=== PATIENT | male | born 1935 | race Caucasian/White ===

== ENCOUNTER 2016-04-07 07:51 | Inpatient (IN) | payer OTHER, MEDICARE ==
[~2016-04-07] VITALS: Ht 190.5 cm; Wt 134.3 kg
[~2016-04-07 07:51] MED LIST: ADVAIR HFA120 INHALA IH; AMLODIPINE BESYL5 MG PO; APRESOLINE50 MG PO; ARTIFICIAL TEAR15 M1 BOTH EYES; ASCORBIC ACID100 MG PO; ASCORBIC ACID500 M3 PO; AUGMENTIN875 MG PO; BIOTENE MOISTUR45 ML PO; BREO ELLIPTA I1 EACH IH; C COMPLEX500 MG PO; CARDURA2 M1 PO; CIPRO HC OTIC S10 ML RIGHT EAR; COREG3.125 M1 PO; COUMADIN3 MG PO; COUMADIN4 MG PO; DIALYVITE 801 TABLET PO; DIALYVITE PO; DIFF-STAT POWD1 EACH PO; DORIBAX250 MG IV; DOXAZOSIN MESYLA2 MG PO; DULCOLAX10 MG PR; DUONEB 2.5-0.5 M3 ML AEROSOL; DUONEB 2.5-0.5 M3 ML IH; EFFEXOR XR150 MG PO; EFFEXOR XR75 MG PO; ENDOCET 5-3251 EACH PO; ENEMA133 M2 PR; ESCITALOPRAM OX10 MG PO; FAMOTIDINE20 MG PO; FEROSUL325 MG PO; FERROUS SULFAT325 MG PO; FINASTERIDE5 MG PO; FLEET ENEMA-AD118 ML PR; FLOMAX0.4 MG PO; FOLBEE PLUS TABL5 MG PO; FOLIC ACID1 MG PO; FUROSEMIDE20 MG PO; FUROSEMIDE40 MG PO; GALZIN25 MG PO; GENTEAL MILD25 ML BOTH EYES; GENTEAL PM OIN3.5 G1 BOTH EYES; HEPARIN SO5000 UNITS SC; HIPREX1 GM PO; HYDRALAZINE HCL50 MG PO; IMODIUM MS REL1 EACH PO; IRON325 M1 PO; KEFLEX500 MG PO; KETOCONAZOLE60 GM TP; KLOR-CON M2020 MEQ PO; LASIX20 MG PO; LASIX40 MG PO; LASIX80 MG PO; LEVEMIR100 UNIT/2 SC; LEVO-T100 MCG PO; LEVOTHYROXINE300 MCG PO; LEVOTHYROXINE50 MCG PO; LEVOTHYROXINE75 MCG PO; LEVOXYL200 MCG PO; LEVOXYL75 MCG PO; LEXAPRO10 MG PO; LEXAPRO20 MG PO; LISINOPRIL5 MG PO; LOPERAMIDE2 MG PO; LYRICA100 MG PO; LYRICA50 MG PO; LYRICA75 MG PO; METOLAZONE2.5 MG PO; MIDODRINE HCL10 MG PO; MILK OF MAGN PO; NEPHRO-VITE RX1 EACH PO; NEPHRO-VITE,1 TABLET PO; NEPRO CARB STE237 ML PO; NOVOLOG 10100 UNITS/ SC; NOVOLOG PE100 UNITS/ SC; OMEPRAZOLE20 MG PO; ORAL ANALGESIC9 GM MM; ORAZINC220 MG PO; PEPCID20 MG PO; PERCOCET 5/31 TABLET PO; POTASSIUM CHLO20 ME1 PO; PRAVACHOL20 MG PO; PRAVASTATIN SOD20 MG PO; PREDNISONE10 MG PO; PRINIVIL5 MG PO; PROAMATINE10 MG PO; PROMETHAZINE HC25 M1 PO; PROSCAR5 MG PO; PROTONIX40 MG PO; RENVELA800 MG PO; REVATIO20 MG PO; SILDENAFIL20 MG PO; SPIRIVA RESPIMAT4 GM IH; SPIRIVA1 INHALATI IH; SUPPOSITORY1 EACH PR; SYNTHROID200 MCG PO; SYNTHROID300 MCG PO; TAMSULOSIN HCL0.4 MG PO; TEARS NATURALE-15 ML BOTH EYES; TYLENOL REGULA325 MG PO; VANCOCIN HCL125 MG PO; VANCOMYCIN HCL250 MG PO; VANCOMYCIN250 MG/5 M PO; VANCOMYCIN750 MG/151 IV; VITAMIN D-32000 UNI2 PO; VITAMIN D2000 UNIT PO; VITAMIN D32000 UNI1 PO; XARELTO20 MG PO; ZINC SULFATE220 M1 PO; ZINC SULFATE220 MG PO; ZOLOFT100 MG PO; [UNRECOGNIZED DRUG - CODE]; [UNRECOGNIZED DRUG - CODE] PO; [UNRECOGNIZED DRUG - OTHER] TP
[2016-04-07 08:15] LABS: BASE EXCESS 0.8 mEq/L (-3 to +3); BICARBONATE 26.6 mEq/L (22-26); CARBOXY HGB 0 % (0-5); METHEMOGLOBIN 0 % (0-1.5); pH 7.36 (7.35-7.45)
[2016-04-07 08:16] LABS: COMMENTS - BLOOD GASES A+C+; DEVICE NRBM; O2 FLOW 15 L/MIN; PCO2 47 mm Hg (35-45); PO2 94 mm Hg (80-100); SITE RR
[2016-04-07 08:55] LABS: HEMATOCRIT 30.5 % (38.0-50.0); MCH 28.5 PG (29.0-34.0); MCHC 29.8 G/DL (30.0-36.0); MCV 95.6 FL (86-99); MEAN PLAT.VOLUME 9.5 uM^3 (9.0-12.4); PLATELET COUNT 161 K/uL (156-360); RBC DIS.WIDTH-CV 17.7 % (11.8-14.6); RED BLOOD COUNT 3.19 M/uL (4.00-5.50); WHITE BLOOD COUNT 18.2 K/uL (4.1-10.2)
[2016-04-07 09:01] LABS: BASOPHIL COUNT 0.1 K/uL (0-0.1); EOSINOPHIL (%) 1.2 % (0-5); EOSINOPHIL COUNT 0.2 K/uL (0-0.3); IMMATURE GRANULOCYTE (%) 0.9 % (0.0-0.7); IMMATURE GRANULOCYTE COUNT 1.7 K/uL; LYMPHOCYTE COUNT 0.5 K/uL (1.0-2.8); MONOCYTE COUNT 1.5 K/uL (0-0.8); NEUTROPHIL COUNT 15.9 K/uL (1.8-6.4)
[2016-04-07 09:07] LABS: INTER. NORMALIZED RATIO 2.8; PROTHROMBIN TIME 29.8 (9.2-11.2); PTT 37.3 (25-32)
[2016-04-07 09:30] LABS: ANION GAP 14 MEQ/L (2-14); CHLORIDE 90 MEQ/L (99-109); GFR ESTIMATE (CALCULATED) 9 mL/min/; GLUCOSE 177 mg/dL (70-99); SAMPLE HEMOLYSIS CHECK 0; SAMPLE ICTERIC CHECK 0; SAMPLE LIPEMIA CHECK 0; SODIUM 132 MEQ/L (136-147); UREA NITROGEN (BUN) 87 mg/dL (9-23)
[2016-04-07 09:31] LABS: POTASSIUM 6.3 MEQ/L (3.7-5.4)
[2016-04-07] MEDS ORDERED: WARFARIN SODIU2.5 MG PO (10:47)
[2016-04-07] MEDS ORDERED: WARFARIN SODIUM5 MG PO (10:47)
[2016-04-07] MEDS ORDERED: LEVO-T175 MCG PO (10:53)
[2016-04-07] MEDS ORDERED: BRINTELLIX20 MG PO (10:55)
[2016-04-07] MEDS ORDERED: LEVAQUIN500 MG PO (10:55)
[2016-04-07] MEDS ORDERED: PROBIOTIC1 EAC1 PO (10:57)
[2016-04-07] MEDS ORDERED: CIPRODEX OTIC7.5 ML RIGHT EAR (11:02)
[2016-04-07] MEDS ORDERED: ALLERGY RELIE15.8 ML BOTH NARES (11:11)
[2016-04-07] MEDS ORDERED: LEVOXYL200 MCG PO (11:12)
[2016-04-07] MEDS ORDERED: IMODIUM MS REL1 EACH PO (11:16)
[2016-04-07] MEDS ORDERED: DUONEB 2.5-0.5 M3 ML AEROSOL (11:18)
[2016-04-07 19:02] VITALS: BP 106/60
[2016-04-07 20:03] VITALS: BP 104/66
[2016-04-07 21:04] VITALS: BP 140/105
[2016-04-07 22:00] VITALS: BP 118/57
[2016-04-07 22:51] VITALS: BP 121/71
[2016-04-07 23:47] VITALS: BP 104/54
[2016-04-08 04:00] VITALS: BP 116/60
[2016-04-08 06:33] LABS: INTER. NORMALIZED RATIO 3.1; PROTHROMBIN TIME 32.2 (9.2-11.2)
[2016-04-08 08:33] VITALS: BP 91/51
[2016-04-08 11:29] VITALS: BP 96/51
[2016-04-08 17:08] LABS: POINT-OF-CARE METER ID UU14149397
[2016-04-08 17:10] VITALS: BP 120/63
[2016-04-08 20:42] VITALS: BP 96/52
[2016-04-08 21:40] LABS: POINT-OF-CARE METER ID UU14149397
[2016-04-08 23:29] VITALS: BP 101/55
[2016-04-09 06:13] LABS: POINT-OF-CARE METER ID UU14149397
[2016-04-09 06:14] LABS: EOSINOPHIL (%) 3.1 % (0-5); EOSINOPHIL COUNT 0.4 K/uL (0-0.3); HEMATOCRIT 26.2 % (38.0-50.0); IMMATURE GRANULOCYTE (%) 0.8 % (0.0-0.7); IMMATURE GRANULOCYTE COUNT 0.1 K/uL; LYMPHOCYTE COUNT 1.1 K/uL (1.0-2.8); MCH 27.9 PG (29.0-34.0); MCHC 29.8 G/DL (30.0-36.0); MCV 93.6 FL (86-99); MEAN PLAT.VOLUME 9.2 uM^3 (9.0-12.4); MONOCYTE (%) 12.4 % (3-12); MONOCYTE COUNT 1.5 K/uL (0-0.8); NEUTROPHIL (%) 74.2 % (45-76); NEUTROPHIL COUNT 8.9 K/uL (1.8-6.4); PLATELET COUNT 121 K/uL (156-360); RBC DIS.WIDTH-CV 17.3 % (11.8-14.6); RBC DIS.WIDTH-SD 59.8 % (39-53)
[2016-04-09 06:40] LABS: ANION GAP 14 MEQ/L (2-14); CHLORIDE 93 MEQ/L (99-109); POTASSIUM 5.3 MEQ/L (3.7-5.4); SAMPLE HEMOLYSIS CHECK 0; SAMPLE ICTERIC CHECK 0; SAMPLE LIPEMIA CHECK 0; SODIUM 133 MEQ/L (136-147); UREA NITROGEN (BUN) 59 mg/dL (9-23)
[2016-04-09 06:42] LABS: GFR ESTIMATE (CALCULATED) 13 mL/min/; GLUCOSE 112 mg/dL (70-99); VANCOMYCIN, TROUGH 7.4 MCG/ML (10-20)
[2016-04-09 08:06] VITALS: BP 115/51
[2016-04-09 14:16] VITALS: BP 118/57
[2016-04-09 14:22] LABS: INTER. NORMALIZED RATIO 6.2; PROTHROMBIN TIME 66.6 (9.2-11.2)
[2016-04-09 16:45] LABS: POINT-OF-CARE METER ID UU14149397
[2016-04-09 19:50] VITALS: BP 84/52
[2016-04-09 21:19] VITALS: BP 101/52
[2016-04-09 22:22] LABS: POINT-OF-CARE METER ID UU13113717
[2016-04-09 23:52] VITALS: BP 135/84
[2016-04-10 03:26] VITALS: BP 80/42
[2016-04-10 04:50] VITALS: BP 106/52
[2016-04-10 06:13] LABS: HEMATOCRIT 27.1 % (38.0-50.0); MCH 28.9 PG (29.0-34.0); MCHC 30.6 G/DL (30.0-36.0); MCV 94.4 FL (86-99); MEAN PLAT.VOLUME 10.1 uM^3 (9.0-12.4); PLATELET COUNT 140 K/uL (156-360); RBC DIS.WIDTH-CV 17.3 % (11.8-14.6); RBC DIS.WIDTH-SD 59.7 % (39-53); RED BLOOD COUNT 2.87 M/uL (4.00-5.50); WHITE BLOOD COUNT 11.1 K/uL (4.1-10.2)
[2016-04-10 06:37] LABS: EOSINOPHIL (%) 0.3 % (0-5); IMMATURE GRANULOCYTE (%) 0.5 % (0.0-0.7); IMMATURE GRANULOCYTE COUNT 0.1 K/uL; LYMPHOCYTE COUNT 0.6 K/uL (1.0-2.8); MONOCYTE (%) 9.8 % (3-12); MONOCYTE COUNT 1.1 K/uL (0-0.8); NEUTROPHIL COUNT 9.3 K/uL (1.8-6.4)
[2016-04-10 06:38] LABS: PROTHROMBIN TIME 77.8 (9.2-11.2)
[2016-04-10 07:01] LABS: INTER. NORMALIZED RATIO 7.2
[2016-04-10 07:02] LABS: HEM NON-PRINT 2 RPT-NC
[2016-04-10 07:12] LABS: POINT-OF-CARE METER ID UU13113717
[2016-04-10 07:45] VITALS: BP 100/58
[2016-04-10 11:32] VITALS: BP 116/59
[2016-04-10] MEDS ORDERED: BRACE (13:21)
[2016-04-10 16:02] LABS: POINT-OF-CARE METER ID UU14149397
[2016-04-10 16:48] LABS: POINT-OF-CARE METER ID UU14149397
[2016-04-10 19:53] VITALS: BP 96/50
[2016-04-10 23:35] VITALS: BP 99/77
[2016-04-11 06:46] LABS: INTER. NORMALIZED RATIO 4.1; PROTHROMBIN TIME 43.5 (9.2-11.2)
[2016-04-11 06:51] LABS: POINT-OF-CARE METER ID UU14149397
[2016-04-11 06:55] LABS: VANCOMYCIN, TROUGH 19.8 MCG/ML (10-20)
[2016-04-11 08:18] LABS: HEMATOCRIT 26.7 % (38.0-50.0); MCH 28.4 PG (29.0-34.0); MCHC 30.7 G/DL (30.0-36.0); MCV 92.4 FL (86-99); MEAN PLAT.VOLUME 10.1 uM^3 (9.0-12.4); PLATELET COUNT 158 K/uL (156-360); RBC DIS.WIDTH-CV 17.2 % (11.8-14.6); RBC DIS.WIDTH-SD 57.6 % (39-53); RED BLOOD COUNT 2.89 M/uL (4.00-5.50); WHITE BLOOD COUNT 8.7 K/uL (4.1-10.2)
[2016-04-11 08:25] LABS: EOSINOPHIL (%) 0 % (0-5); IMMATURE GRANULOCYTE COUNT 0.1 K/uL; INTER. NORMALIZED RATIO 3.9; LYMPHOCYTE COUNT 0.6 K/uL (1.0-2.8); MONOCYTE (%) 9.8 % (3-12); MONOCYTE COUNT 0.9 K/uL (0-0.8); NEUTROPHIL COUNT 7.1 K/uL (1.8-6.4); PROTHROMBIN TIME 41.5 (9.2-11.2)
[2016-04-11 08:39] LABS: ANION GAP 15 MEQ/L (2-14); CHLORIDE 94 MEQ/L (99-109); GFR ESTIMATE (CALCULATED) 15 mL/min/; GLUCOSE 177 mg/dL (70-99); POTASSIUM 5.5 MEQ/L (3.7-5.4); SAMPLE HEMOLYSIS CHECK 0; SAMPLE ICTERIC CHECK 0; SAMPLE LIPEMIA CHECK 0; SODIUM 130 MEQ/L (136-147); UREA NITROGEN (BUN) 59 mg/dL (9-23)
[2016-04-11 10:41] LABS: IRON 96 MCG/DL (35-150)
[2016-04-11 14:28] LABS: POINT-OF-CARE METER ID UU14149397
[2016-04-11 16:24] VITALS: BP 86/53
[2016-04-11 16:47] LABS: POINT-OF-CARE METER ID UU14149397
[2016-04-11 19:38] VITALS: BP 104/67
[2016-04-11 23:47] VITALS: BP 108/61
[2016-04-12 04:06] VITALS: BP 115/65
[2016-04-12 06:24] LABS: POINT-OF-CARE METER ID UU14149397
[2016-04-12 06:33] LABS: INTER. NORMALIZED RATIO 2.4; PROTHROMBIN TIME 25.1 (9.2-11.2)
[2016-04-12 07:42] VITALS: BP 114/55
[2016-04-12 12:14] VITALS: BP 104/65
[2016-04-12 16:27] LABS: POINT-OF-CARE METER ID UU14149397
[2016-04-12 17:18] VITALS: BP 118/57
[2016-04-12 19:53] VITALS: BP 105/55
[2016-04-12 21:56] LABS: POINT-OF-CARE METER ID UU13113717
[2016-04-13] VITALS (7 sets, daily range): BP systolic 97–115; BP diastolic 53–61
[2016-04-13 06:24] LABS: INTER. NORMALIZED RATIO 2.4; PROTHROMBIN TIME 24.9 (9.2-11.2)
[2016-04-13 06:27] LABS: POINT-OF-CARE METER ID UU14149397
[2016-04-14 04:12] VITALS: BP 11/61
[2016-04-14 07:03] LABS: POINT-OF-CARE METER ID UU13113717
[2016-04-14 08:10] VITALS: BP 94/52
[2016-04-14 11:20] LABS: INTER. NORMALIZED RATIO 2.3; PROTHROMBIN TIME 23.8 (9.2-11.2)
[2016-04-14 16:13] VITALS: BP 103/55
[2016-04-14 17:07] LABS: POINT-OF-CARE METER ID UU13113717
[2016-04-14 20:05] VITALS: BP 102/52
[2016-04-15 00:15] VITALS: BP 80/44
[2016-04-15 04:29] VITALS: BP 115/55
[2016-04-15 05:36] LABS: NRBC (%) 0.2 /100 WBC (0-0)
[2016-04-15 05:39] LABS: INTER. NORMALIZED RATIO 1.8; PROTHROMBIN TIME 18.4 (9.2-11.2)
[2016-04-15 06:08] LABS: EOSINOPHIL (%) 0.3 % (0-5); IMMATURE GRANULOCYTE (%) 2.1 % (0.0-0.7); IMMATURE GRANULOCYTE COUNT 0.2 K/uL; LYMPHOCYTE COUNT 0.6 K/uL (1.0-2.8); MCH 28.6 PG (29.0-34.0); MCV 95.2 FL (86-99); MEAN PLAT.VOLUME 9.3 uM^3 (9.0-12.4); MONOCYTE (%) 9.8 % (3-12); MONOCYTE COUNT 1.1 K/uL (0-0.8); NEUTROPHIL (%) 82.4 % (45-76); NEUTROPHIL COUNT 9.6 K/uL (1.8-6.4); PLATELET COUNT 221 K/uL (156-360); RBC DIS.WIDTH-CV 18.3 % (11.8-14.6); RBC DIS.WIDTH-SD 61.1 % (39-53); RED BLOOD COUNT 2.94 M/uL (4.00-5.50); WHITE BLOOD COUNT 11.6 K/uL (4.1-10.2)
[2016-04-15 06:21] LABS: HEMATOLOGY COMMENT 1 REV; USER ID SLU
[2016-04-15 06:24] LABS: ANION GAP 13 MEQ/L (2-14); CHLORIDE 96 MEQ/L (99-109); GLUCOSE 129 mg/dL (70-99); POTASSIUM 4.9 MEQ/L (3.7-5.4); SAMPLE HEMOLYSIS CHECK 0; SAMPLE ICTERIC CHECK 0; SAMPLE LIPEMIA CHECK 0; SODIUM 134 MEQ/L (136-147); UREA NITROGEN (BUN) 45 mg/dL (9-23)
[2016-04-15 06:28] LABS: GFR ESTIMATE (CALCULATED) 21 mL/min/
[2016-04-15 06:54] LABS: POINT-OF-CARE METER ID UU13113717
[2016-04-15 07:22] VITALS: BP 126/59
[2016-04-15 11:31] LABS: POINT-OF-CARE METER ID UU13113717
[2016-04-15 11:58] VITALS: BP 108/59
[2016-04-15 16:27] VITALS: BP 103/53
[2016-04-15 17:23] LABS: POINT-OF-CARE METER ID UU13113717
[2016-04-15 20:26] VITALS: BP 102/56
[2016-04-15 21:47] LABS: POINT-OF-CARE METER ID UU14149397
[2016-04-16 00:05] VITALS: BP 113/55
[2016-04-16 04:26] VITALS: BP 107/59
[2016-04-16 08:00] VITALS: BP 105/59
[2016-04-16 08:46] LABS: HEMATOCRIT 26.9 % (38.0-50.0); MCH 28.6 PG (29.0-34.0); MCHC 30.5 G/DL (30.0-36.0); MCV 93.7 FL (86-99); MEAN PLAT.VOLUME 9.4 uM^3 (9.0-12.4); PLATELET COUNT 223 K/uL (156-360); RBC DIS.WIDTH-CV 18.5 % (11.8-14.6); RBC DIS.WIDTH-SD 62.1 % (39-53); RED BLOOD COUNT 2.87 M/uL (4.00-5.50); WHITE BLOOD COUNT 10.9 K/uL (4.1-10.2)
[2016-04-16 09:02] LABS: INTER. NORMALIZED RATIO 1.7; PROTHROMBIN TIME 17.1 (9.2-11.2)
[2016-04-16 09:05] LABS: ANION GAP 13 MEQ/L (2-14); CHLORIDE 95 MEQ/L (99-109); GFR ESTIMATE (CALCULATED) 16 mL/min/; GLUCOSE 122 mg/dL (70-99); POTASSIUM 4.9 MEQ/L (3.7-5.4); SAMPLE HEMOLYSIS CHECK 0; SAMPLE ICTERIC CHECK 0; SAMPLE LIPEMIA CHECK 0; SODIUM 132 MEQ/L (136-147); UREA NITROGEN (BUN) 65 mg/dL (9-23)
[2016-04-16 15:49] VITALS: BP 102/60
[2016-04-16 20:32] VITALS: BP 117/57
[2016-04-16 22:51] LABS: POINT-OF-CARE METER ID UU13113717
[2016-04-16 23:56] VITALS: BP 110/58
[2016-04-17 03:44] VITALS: BP 115/56
[2016-04-17 06:30] LABS: INTER. NORMALIZED RATIO 1.6; PROTHROMBIN TIME 16.5 (9.2-11.2)
[2016-04-17 06:40] LABS: ANION GAP 11 MEQ/L (2-14); CHLORIDE 98 MEQ/L (99-109); GFR ESTIMATE (CALCULATED) 22 mL/min/; GLUCOSE 140 mg/dL (70-99); POTASSIUM 4.2 MEQ/L (3.7-5.4); SAMPLE HEMOLYSIS CHECK 0; SAMPLE ICTERIC CHECK 0; SAMPLE LIPEMIA CHECK 0; SODIUM 135 MEQ/L (136-147); UREA NITROGEN (BUN) 44 mg/dL (9-23)
[2016-04-17 06:58] LABS: POINT-OF-CARE METER ID UU14149397
[2016-04-17 07:26] LABS: METH RESISTANT S AUREUS PCR POSITIVE (NEGATIVE); PROBE CHECK PASS
[2016-04-17 08:06] VITALS: BP 124/66
[2016-04-17 09:39] LABS: HEMATOCRIT 26.7 % (38.0-50.0); MCH 28.7 PG (29.0-34.0); MCV 95.7 FL (86-99); MEAN PLAT.VOLUME 9.7 uM^3 (9.0-12.4); PLATELET COUNT 229 K/uL (156-360); RBC DIS.WIDTH-CV 18.7 % (11.8-14.6); RED BLOOD COUNT 2.79 M/uL (4.00-5.50); WHITE BLOOD COUNT 10.1 K/uL (4.1-10.2)
[2016-04-17 10:15] LABS: EOSINOPHIL (%) 1.3 % (0-5); EOSINOPHIL COUNT 0.1 K/uL (0-0.3); HEMATOLOGY COMMENT 1 SMEAR COMPATIBLE; IMMATURE GRANULOCYTE (%) 3.3 % (0.0-0.7); IMMATURE GRANULOCYTE COUNT 0.3 K/uL; MONOCYTE (%) 12.7 % (3-12); MONOCYTE COUNT 1.3 K/uL (0-0.8); NEUTROPHIL (%) 72.7 % (45-76); NEUTROPHIL COUNT 7.3 K/uL (1.8-6.4); USER ID STC
[2016-04-17] MEDS ORDERED: AMOX TR-K CLV1 EAC3 PO (10:53)
[2016-04-17] MEDS ORDERED: ENDOCET 5-3251 EACH PO (10:53)
[2016-04-17] MEDS ORDERED: OXYCONTIN10 MG PO (10:53)
[2016-04-17] MEDS ORDERED: FLUOXETINE HCL40 MG PO (10:53)
[2016-04-17] MEDS ORDERED: PREDNISONE10 MG PO (11:00)
[2016-04-17 15:24] LABS: POINT-OF-CARE METER ID UU13113717
[2016-04-17 16:40] VITALS: BP 114/56
[2016-04-17 16:53] LABS: POINT-OF-CARE METER ID UU13113717
[2016-04-17 19:48] VITALS: BP 109/55
[2016-04-18 02:26] VITALS: BP 104/55
[2016-04-18 04:56] VITALS: BP 122/76
[2016-04-18 06:12] LABS: POINT-OF-CARE METER ID UU14149397
[2016-04-18 08:11] LABS: HEMATOCRIT 27.6 % (38.0-50.0); MCH 28.5 PG (29.0-34.0); MCHC 29.7 G/DL (30.0-36.0); MCV 95.8 FL (86-99); RBC DIS.WIDTH-CV 18.7 % (11.8-14.6); RBC DIS.WIDTH-SD 64.9 % (39-53); RED BLOOD COUNT 2.88 M/uL (4.00-5.50); WHITE BLOOD COUNT 9.2 K/uL (4.1-10.2)
[2016-04-18 08:22] LABS: ANION GAP 11 MEQ/L (2-14); CHLORIDE 100 MEQ/L (99-109); POTASSIUM 3.9 MEQ/L (3.7-5.4); SAMPLE HEMOLYSIS CHECK 0; SAMPLE ICTERIC CHECK 0; SAMPLE LIPEMIA CHECK 0; SODIUM 137 MEQ/L (136-147)
[2016-04-18 08:30] LABS: GFR ESTIMATE (CALCULATED) 28 mL/min/; GLUCOSE 102 mg/dL (70-99); UREA NITROGEN (BUN) 35 mg/dL (9-23)
[2016-04-18 08:44] LABS: INTER. NORMALIZED RATIO 1.5; PROTHROMBIN TIME 15.4 (9.2-11.2)
[2016-04-18 08:53] LABS: MEAN PLAT.VOLUME 10.9 uM^3 (9.0-12.4)
[2016-04-18 08:58] LABS: PLATELET COUNT 146 K/uL (156-360)
[2016-04-18 17:00] VITALS: BP 114/59
== END 2016-04-18 19:00 | DRG 533 ==
LOC: EME → EDBD 07:51 → EME 07:51 → 3EAST 14:03 → EDOF 14:03 → 3EAST 21:39
PROVIDERS: Emergency Medicine; Internal Medicine; Internal Medicine Nephrology
PROC: 5A1D60Z (ICD-10-PCS; principal; 2016-04-07)
DX: S72.402A Unspecified fracture of lower end of left femur, initial encounter for closed fracture (principal); J44.0 Chronic obstructive pulmonary disease with (acute) lower respiratory infection; J15.9 Unspecified bacterial pneumonia; N18.6 End stage renal disease; F33.9 Major depressive disorder, recurrent, unspecified; J96.01 Acute respiratory failure with hypoxia; I12.0 Hypertensive chronic kidney disease with stage 5 chronic kidney disease or end stage renal disease; E11.22 Type 2 diabetes mellitus with diabetic chronic kidney disease; J90 Pleural effusion, not elsewhere classified; I50.30 Unspecified diastolic (congestive) heart failure; I73.9 Peripheral vascular disease, unspecified; D63.1 Anemia in chronic kidney disease; E66.01 Morbid (severe) obesity due to excess calories; E78.5 Hyperlipidemia, unspecified; I48.2 Chronic atrial fibrillation; E03.9 Hypothyroidism, unspecified; I27.2 Other secondary pulmonary hypertension; W05.0XXA Fall from non-moving wheelchair, initial encounter; Z89.611 Acquired absence of right leg above knee; Z79.01 Long term (current) use of anticoagulants; Y92.129 Unspecified place in nursing home as the place of occurrence of the external cause; Z87.891 Personal history of nicotine dependence; Z99.2 Dependence on renal dialysis; Z88.1 Allergy status to other antibiotic agents; Z88.8 Allergy status to other drugs, medicaments and biological substances; Z68.37 Body mass index [BMI] 37.0-37.9, adult; Y99.8 Other external cause status
CPT/HCPCS: 36415; 36600; 71010; 71250; 73502; 73551; 73552; 73560; 80048; 80069; 80202; 82272; 82565; 82803; 82948; 83540; 84466; 85025; 85027; 85610; 85730; 87040; 87641; 93005; 94640; 94640 76; 94799; 99202; 99281; 99285; J0881; J1644; J1815; J2405; J2543; J3010; J3370; J7050; J7512; P9047

== ENCOUNTER 2016-06-11 12:38 | Day surgery (SDC) | payer OTHER, MEDICARE ==
[~2016-06-11 12:38] MED LIST changes: +ALLERGY RELIE15.8 ML BOTH NARES; +AMOX TR-K CLV1 EAC3 PO; +BRACE; +BRINTELLIX20 MG PO; +CIPRODEX OTIC7.5 ML RIGHT EAR; +FLUOXETINE HCL40 MG PO; +LEVAQUIN500 MG PO; +LEVO-T175 MCG PO; +LEVO-T300 MCG PO; +METHENAMINE MA500 MG PO; +OXYCONTIN10 MG PO; +PROBIOTIC1 EAC1 PO; +WARFARIN SODIU2.5 MG PO; +WARFARIN SODIUM4 MG PO; +WARFARIN SODIUM5 MG PO; +WELLBUTRIN XL150 MG PO
[2016-06-11 13:43] LABS: POINT-OF-CARE METER ID UU13113696
[2016-06-11 14:58] LABS: METH RESISTANT S AUREUS PCR POSITIVE (NEGATIVE)
[2016-06-11 14:59] LABS: PROBE CHECK PASS
== END 2016-06-11 18:00 ==
LOC: CATH 12:38
PROVIDERS: Surgery
DX: T82.858A Stenosis of other vascular prosthetic devices, implants and grafts, initial encounter (principal); Y83.2 Surgical operation with anastomosis, bypass or graft as the cause of abnormal reaction of the patient, or of later complication, without mention of misadventure at the time of the procedure; I12.0 Hypertensive chronic kidney disease with stage 5 chronic kidney disease or end stage renal disease; N18.6 End stage renal disease; Z99.2 Dependence on renal dialysis; I27.2 Other secondary pulmonary hypertension; I48.91 Unspecified atrial fibrillation
CPT/HCPCS: 82948; 87641; C1725; C1769; C1874; C1894; J1644; J2250; J3010

== ENCOUNTER → 2016-11-13 | Day surgery (SDC) | payer OTHER, MEDICARE ==
[~2016-11-13] VITALS: Ht 170.2 cm; Wt 135.0 kg
[~2016-11-13] MED LIST changes: +ARTIFICIAL TEAR15 M6 BOTH EYES; +DAILY VITE1 EAC1 PO; +WELLBUTRIN SR100 MG PO
[2016-11-13 08:41] LABS: METH RESISTANT S AUREUS PCR POSITIVE (NEGATIVE)
[2016-11-13 08:42] LABS: PROBE CHECK PASS
[2016-11-13 09:19] LABS: POINT-OF-CARE METER ID UU13113675
== END ==
LOC: CATH 07:12
PROVIDERS: Surgery
DX: T82.858A Stenosis of other vascular prosthetic devices, implants and grafts, initial encounter (principal); I12.0 Hypertensive chronic kidney disease with stage 5 chronic kidney disease or end stage renal disease; N18.6 End stage renal disease; Z99.2 Dependence on renal dialysis
CPT/HCPCS: 82948; 84132; 87641; C1725; C1769; C1894; J1200; J1644; J2250; J2930; J3010; S0028

== ENCOUNTER 2016-11-17 15:57 | Day surgery (SDC) | payer OTHER, MEDICARE ==
[~2016-11-17 15:57] MED LIST changes: -WELLBUTRIN SR100 MG PO
[2016-11-17] MEDS ORDERED: WELLBUTRIN SR100 MG PO (16:56)
[2016-11-17 17:00] VITALS: BP 152/67
[2016-11-17] MEDS ORDERED: RENVELA800 MG PO (17:02)
[2016-11-17 17:08] LABS: ANION GAP 15 MEQ/L (2-14); CHLORIDE 97 MEQ/L (99-109); POTASSIUM 4.5 MEQ/L (3.7-5.4); SAMPLE HEMOLYSIS CHECK 0; SAMPLE ICTERIC CHECK 0; SAMPLE LIPEMIA CHECK 0; SODIUM 139 MEQ/L (136-147)
[2016-11-17 17:13] LABS: GFR ESTIMATE (CALCULATED) 9 mL/min/; GLUCOSE 114 mg/dL (70-99); UREA NITROGEN (BUN) 78 mg/dL (9-23)
[2016-11-17 17:42] LABS: METH RESISTANT S AUREUS PCR POSITIVE (NEGATIVE)
[2016-11-17 17:43] LABS: PROBE CHECK PASS; SPECIMEN PROCESSING CONTROL PASS
[2016-11-17 20:25] VITALS: BP 142/69
[2016-11-17 21:26] VITALS: BP 137/63
[2016-11-17 22:46] VITALS: BP 130/66
== END 2016-11-17 22:53 ==
LOC: SDC 15:57
PROVIDERS: Surgery
PROC: 05WY07Z Revision of Autologous Tissue Substitute in Upper Vein, Open Approach (ICD-10-PCS; principal; 2016-11-17)
DX: T82.858A Stenosis of other vascular prosthetic devices, implants and grafts, initial encounter (principal); N18.6 End stage renal disease; Z99.2 Dependence on renal dialysis
CPT/HCPCS: 80048; 87641; 93005; C2628; J0690; J1644; J2720; J3010

== ENCOUNTER 2017-04-16 15:45 | Day surgery (SDC) | payer OTHER, MEDICARE ==
[~2017-04-16 15:45] MED LIST changes: +WELLBUTRIN SR100 MG PO
[2017-04-16] MEDS ORDERED: OMEPRAZOLE20 MG PO (15:49)
[2017-04-16] MEDS ORDERED: PRAVASTATIN SOD20 MG PO (15:50)
[2017-04-16] MEDS ORDERED: TIZANIDINE HCL4 M1 PO (15:51)
[2017-04-16] MEDS ORDERED: BRINTELLIX20 MG PO (15:51)
== END 2017-04-16 18:02 ==
LOC: CATH 15:45
DX: T82.590A Other mechanical complication of surgically created arteriovenous fistula, initial encounter (principal); N18.6 End stage renal disease; Z99.2 Dependence on renal dialysis
CPT/HCPCS: 87641; C1725; C1769; C1894; J0690; J1200; J1644; J2250; J2765; J2930; J3010; S0020

== ENCOUNTER 2017-06-06 09:50 | Day surgery (SDC) | payer OTHER, MEDICARE ==
[~2017-06-06] VITALS: Ht 190.5 cm; Wt 127.0 kg
[~2017-06-06 09:50] MED LIST changes: +TIZANIDINE HCL4 M1 PO
[2017-06-06 10:11] VITALS: BP 136/65
[2017-06-06 11:03] LABS: HEMATOCRIT 34.2 % (38.0-50.0); HEMOGLOBIN 10.8 G/DL (12.5-16.6); MCH 32.7 PG (29.0-34.0); MCHC 31.6 G/DL (30.0-36.0); MCV 103.6 FL (86-99); PLATELET COUNT 138 K/uL (156-360); RBC DIS.WIDTH-CV 16.8 % (11.8-14.6); RBC DIS.WIDTH-SD 63.2 % (39-53); WHITE BLOOD COUNT 7.7 K/uL (4.1-10.2)
[2017-06-06 12:06] LABS: CHLORIDE 94 MEQ/L (99-109); CREATININE 4.7 MG/DL (0.6-1.3); GFR ESTIMATE (CALCULATED) 13 mL/min/ (58.99-99999); GLUCOSE 79 mg/dL (70-99); POTASSIUM 4.7 MEQ/L (3.7-5.4); SODIUM 139 MEQ/L (136-147); UREA NITROGEN (BUN) 51 mg/dL (9-23)
[2017-06-06 14:42] VITALS: BP 118/59
[2017-06-06 16:20] VITALS: BP 106/58
== END 2017-06-06 17:30 ==
LOC: SDC 09:50 → 2EAST 09:52 → SDC 13:37 → 2EAST 17:30
PROVIDERS: Surgery
DX: T82.868A Thrombosis due to vascular prosthetic devices, implants and grafts, initial encounter (principal); I12.0 Hypertensive chronic kidney disease with stage 5 chronic kidney disease or end stage renal disease; N18.6 End stage renal disease; Z99.2 Dependence on renal dialysis; E11.22 Type 2 diabetes mellitus with diabetic chronic kidney disease; E03.9 Hypothyroidism, unspecified; I48.91 Unspecified atrial fibrillation; K21.9 Gastro-esophageal reflux disease without esophagitis; K44.9 Diaphragmatic hernia without obstruction or gangrene; J44.9 Chronic obstructive pulmonary disease, unspecified; Z99.81 Dependence on supplemental oxygen; D64.9 Anemia, unspecified; Z87.891 Personal history of nicotine dependence; Z79.01 Long term (current) use of anticoagulants
CPT/HCPCS: 80048; 82948; 85027; 85610; 87641; 93005; 94799; C1725; C1757; C1768; C1769; C1894; C2628; G0378; J0690; J1644; J7120; S0020

== ENCOUNTER 2017-07-01 17:03 | Inpatient (IN) | payer OTHER, MEDICARE ==
[~2017-07-01] VITALS: Ht 190.5 cm; Wt 131.0 kg
[~2017-07-01 17:03] MED LIST changes: -DAILY VITE1 EAC1 PO; +DIALYVITE 3,001 EACH PO; -LEVO-T300 MCG PO; +SYNTHROID175 MCG PO; -TIZANIDINE HCL4 M1 PO; +TIZANIDINE HCL4 MG PO
[2017-07-01 17:49] LABS: HEMATOCRIT 35.4 % (38.0-50.0); HEMOGLOBIN 11.2 G/DL (12.5-16.6); MCH 33.4 PG (29.0-34.0); MCHC 31.6 G/DL (30.0-36.0); MCV 105.7 FL (86-99); PLATELET COUNT 158 K/uL (156-360); RBC DIS.WIDTH-CV 16.4 % (11.8-14.6); RBC DIS.WIDTH-SD 61.6 % (39-53); RED BLOOD COUNT 3.35 M/uL (4.00-5.50); WHITE BLOOD COUNT 10.6 K/uL (4.1-10.2)
[2017-07-01 18:01] LABS: CHLORIDE 90 mEq/L (99-109); POTASSIUM 2.9 mEq/L (3.7-5.4); SODIUM 142 mEq/L (136-147)
[2017-07-01 18:03] LABS: GLUCOSE 122 mg/dL (70-99)
[2017-07-01 18:07] LABS: CREATININE 2.8 mg/dL (0.6-1.3); GFR ESTIMATE (CALCULATED) 23 mL/min/ (58.99-99999)
[2017-07-01 18:08] LABS: UREA NITROGEN (BUN) 18 mg/dL (9-23)
[2017-07-01 18:12] LABS: TROP-I INTERPRETATION NEGATIVE; TROPONIN-I 0.09 ng/mL (0.0-0.30)
[2017-07-01] MEDS ORDERED: WELLBUTRIN SR150 MG PO (20:55)
[2017-07-01] MEDS ORDERED: NEPHRO-VITE,1 TABLET PO (20:59)
[2017-07-01] MEDS ORDERED: TYLENOL REGULA325 MG PO (21:01)
[2017-07-01] MEDS ORDERED: DUONEB 2.5-0.5 M3 ML AEROSOL (21:02)
[2017-07-01] MEDS ORDERED: OXYCODONE HCL5 MG PO (21:02)
[2017-07-01] MEDS ORDERED: SILTUSSIN100 MG/51 PO (21:02)
[2017-07-02] VITALS (7 sets, daily range): BP systolic 90–117; BP diastolic 44–71
[2017-07-02 05:41] LABS: TROP-I INTERPRETATION NEGATIVE; TROPONIN-I 0.09 ng/mL (0.0-0.30)
[2017-07-02 13:15] LABS: CHLORIDE 90 MEQ/L (99-109); GFR ESTIMATE (CALCULATED) 17 mL/min/ (58.99-99999); POTASSIUM 3.3 MEQ/L (3.7-5.4); SODIUM 137 MEQ/L (136-147); UREA NITROGEN (BUN) 27 mg/dL (9-23)
[2017-07-02 13:28] LABS: TROP-I INTERPRETATION NEGATIVE; TROPONIN-I 0.08 ng/mL (0.0-0.30)
[2017-07-02 13:29] LABS: CREATININE 3.6 MG/DL (0.6-1.3); GLUCOSE 91 mg/dL (70-99)
[2017-07-02 14:32] LABS: INTER. NORMALIZED RATIO 1.4
[2017-07-03 03:30] VITALS: BP 90/52
[2017-07-03 05:50] LABS: INTER. NORMALIZED RATIO 1.3
[2017-07-03 05:51] LABS: BASOPHIL (%) 1.1 % (0-1); BASOPHIL COUNT 0.1 K/uL (0-0.1); EOSINOPHIL (%) 4.5 % (0-5); EOSINOPHIL COUNT 0.4 K/uL (0-0.3); HEMATOCRIT 36.8 % (38.0-50.0); HEMOGLOBIN 11.2 G/DL (12.5-16.6); IMMATURE GRANULOCYTE (%) 1.1 % (0.0-0.7); LYMPHOCYTE (%) 17.2 % (15-42); LYMPHOCYTE COUNT 1.7 K/uL (1.0-2.8); MCH 32.5 PG (29.0-34.0); MCHC 30.4 G/DL (30.0-36.0); MCV 106.7 FL (86-99); MONOCYTE (%) 8.7 % (3-12); MONOCYTE COUNT 0.9 K/uL (0-0.8); NEUTROPHIL (%) 67.4 % (45-76); NEUTROPHIL COUNT 6.6 K/uL (1.8-6.4); PLATELET COUNT 168 K/uL (156-360); RBC DIS.WIDTH-CV 16.6 % (11.8-14.6); RBC DIS.WIDTH-SD 63.3 % (39-53); RED BLOOD COUNT 3.45 M/uL (4.00-5.50); WHITE BLOOD COUNT 9.8 K/uL (4.1-10.2)
[2017-07-03 07:12] LABS: CHLORIDE 90 MEQ/L (99-109); GFR ESTIMATE (CALCULATED) 13 mL/min/ (58.99-99999); GLUCOSE 98 mg/dL (70-99); POTASSIUM 3.9 MEQ/L (3.7-5.4); SODIUM 137 MEQ/L (136-147)
[2017-07-03 07:17] LABS: CREATININE 4.5 MG/DL (0.6-1.3); UREA NITROGEN (BUN) 41 mg/dL (9-23)
[2017-07-03 10:17] VITALS: BP 105/62
[2017-07-03 19:20] VITALS: BP 85/46
[2017-07-03 20:40] VITALS: BP 78/30
[2017-07-03 23:00] VITALS: BP 95/55
[2017-07-04 03:00] VITALS: BP 100/56
[2017-07-04 05:51] LABS: INTER. NORMALIZED RATIO 1.3
[2017-07-04 08:38] VITALS: BP 103/66
[2017-07-04 09:51] LABS: BASOPHIL (%) 0.6 % (0-1); BASOPHIL COUNT 0.1 K/uL (0-0.1); EOSINOPHIL (%) 3.6 % (0-5); EOSINOPHIL COUNT 0.3 K/uL (0-0.3); HEMATOCRIT 35.2 % (38.0-50.0); IMMATURE GRANULOCYTE (%) 0.7 % (0.0-0.7); LYMPHOCYTE (%) 19.6 % (15-42); LYMPHOCYTE COUNT 1.7 K/uL (1.0-2.8); MCH 33.4 PG (29.0-34.0); MCHC 31.3 G/DL (30.0-36.0); MONOCYTE (%) 8.4 % (3-12); MONOCYTE COUNT 0.7 K/uL (0-0.8); NEUTROPHIL (%) 67.1 % (45-76); NEUTROPHIL COUNT 5.9 K/uL (1.8-6.4); PLATELET COUNT 160 K/uL (156-360); RBC DIS.WIDTH-SD 64.8 % (39-53); RED BLOOD COUNT 3.29 M/uL (4.00-5.50); WHITE BLOOD COUNT 8.7 K/uL (4.1-10.2)
[2017-07-04 09:59] LABS: ALBUMIN 3.6 G/DL (3.2-4.8); CHLORIDE 93 MEQ/L (99-109); POTASSIUM 4.2 MEQ/L (3.7-5.4); SODIUM 137 MEQ/L (136-147)
[2017-07-04 10:05] LABS: GFR ESTIMATE (CALCULATED) 19 mL/min/ (58.99-99999); GLUCOSE 145 mg/dL (70-99); PHOSPHORUS 4.4 mg/dL (2.5-4.9); UREA NITROGEN (BUN) 29 mg/dL (9-23)
[2017-07-04 10:07] LABS: CREATININE 3.4 MG/DL (0.6-1.3)
[2017-07-04 13:07] VITALS: BP 107/62
[2017-07-04 17:26] VITALS: BP 102/63
[2017-07-04 21:52] VITALS: BP 116/56
[2017-07-05] VITALS (7 sets, daily range): BP systolic 92–147; BP diastolic 51–97
[2017-07-05 06:11] LABS: INTER. NORMALIZED RATIO 1.3
[2017-07-06 03:52] VITALS: BP 124/67
[2017-07-06 06:18] LABS: INTER. NORMALIZED RATIO 1.3
[2017-07-06 08:44] VITALS: BP 126/60
[2017-07-06 10:07] LABS: BASOPHIL (%) 0.5 % (0-1); BASOPHIL COUNT 0.1 K/uL (0-0.1); EOSINOPHIL (%) 2.1 % (0-5); EOSINOPHIL COUNT 0.2 K/uL (0-0.3); HEMATOCRIT 35.6 % (38.0-50.0); HEMOGLOBIN 11.2 G/DL (12.5-16.6); IMMATURE GRANULOCYTE (%) 1.2 % (0.0-0.7); LYMPHOCYTE (%) 13.2 % (15-42); LYMPHOCYTE COUNT 1.4 K/uL (1.0-2.8); MCH 32.5 PG (29.0-34.0); MCHC 31.5 G/DL (30.0-36.0); MCV 103.2 FL (86-99); MONOCYTE (%) 7.3 % (3-12); MONOCYTE COUNT 0.8 K/uL (0-0.8); NEUTROPHIL (%) 75.7 % (45-76); NEUTROPHIL COUNT 7.9 K/uL (1.8-6.4); PLATELET COUNT 166 K/uL (156-360); RBC DIS.WIDTH-CV 16.9 % (11.8-14.6); RBC DIS.WIDTH-SD 62.4 % (39-53); RED BLOOD COUNT 3.45 M/uL (4.00-5.50); WHITE BLOOD COUNT 10.4 K/uL (4.1-10.2)
[2017-07-06 10:26] LABS: ALBUMIN 3.6 G/DL (3.2-4.8); CHLORIDE 92 MEQ/L (99-109); POTASSIUM 4.8 MEQ/L (3.7-5.4); SODIUM 135 MEQ/L (136-147)
[2017-07-06 10:37] LABS: CREATININE 5.7 MG/DL (0.6-1.3); GFR ESTIMATE (CALCULATED) 10 mL/min/ (58.99-99999); GLUCOSE 124 mg/dL (70-99); PHOSPHORUS 7.5 mg/dL (2.5-4.9); UREA NITROGEN (BUN) 66 mg/dL (9-23)
[2017-07-06 11:30] LABS: HEPATITIS B SURFACE ANTIGEN Nonreactive
[2017-07-06 11:31] LABS: HEPATITIS B SURFACE ANTIBODY Nonreactive
[2017-07-06] MEDS ORDERED: COUMADIN1 MG PO (11:40)
[2017-07-06] MEDS ORDERED: ZOLPIDEM TARTRAT5 MG PO (11:40)
== END 2017-07-06 16:35 | DRG 190 ==
LOC: EME 17:03 → EDOF 22:25 → 4EAST 22:25 → ENRESERV 22:28 → 4EAST 07-02 01:18 → ENRESERV 07-05 14:34 → 3EAST 07-05 18:14
PROVIDERS: Emergency Medicine; Family Medicine; Hospitalist; Internal Medicine Nephrology
PROC: 5A1D70Z Performance of Urinary Filtration, Intermittent, Less than 6 Hours Per Day (ICD-10-PCS; principal; 2017-07-03)
DX: J44.1 Chronic obstructive pulmonary disease with (acute) exacerbation (principal); J44.0 Chronic obstructive pulmonary disease with (acute) lower respiratory infection; J20.9 Acute bronchitis, unspecified; I13.2 Hypertensive heart and chronic kidney disease with heart failure and with stage 5 chronic kidney disease, or end stage renal disease; E11.22 Type 2 diabetes mellitus with diabetic chronic kidney disease; I50.9 Heart failure, unspecified; N18.6 End stage renal disease; J98.11 Atelectasis; I95.9 Hypotension, unspecified; I27.20 Pulmonary hypertension, unspecified; D63.1 Anemia in chronic kidney disease; G47.33 Obstructive sleep apnea (adult) (pediatric); I48.92 Unspecified atrial flutter; I48.91 Unspecified atrial fibrillation; Z91.19 Patient's noncompliance with other medical treatment and regimen; Z99.81 Dependence on supplemental oxygen; Z99.2 Dependence on renal dialysis; E03.9 Hypothyroidism, unspecified; E78.5 Hyperlipidemia, unspecified; R19.7 Diarrhea, unspecified; R51 Headache; H91.90 Unspecified hearing loss, unspecified ear; E66.01 Morbid (severe) obesity due to excess calories; Z68.36 Body mass index [BMI] 36.0-36.9, adult; Z87.01 Personal history of pneumonia (recurrent); Z87.891 Personal history of nicotine dependence; Z89.611 Acquired absence of right leg above knee
CPT/HCPCS: 71046; 78582; 80048; 80069; 81003; 83605; 84484; 85025; 85025 91; 85027; 85610; 86706; 87040; 87340; 87493; 87641; 87801; 93005; 93306; 93971; 94640; 94640 76; 94799; 99202; 99281; 99285; A9539; A9540; J0692; J1644; J2543; J3370; J7040; J7050; J7120; J7512; P9047; S0030

== ENCOUNTER 2017-09-09 17:27 | Inpatient (IN) | payer OTHER, MEDICARE ==
[~2017-09-09] VITALS: Ht 190.5 cm; Wt 128.7 kg
[~2017-09-09 17:27] MED LIST changes: +COUMADIN1 MG PO; +OXYCODONE HCL5 MG PO; +SILTUSSIN100 MG/51 PO; +ZOLPIDEM TARTRAT5 MG PO
[2017-09-09 17:52] LABS: BASOPHIL (%) 0.4 % (0-1); BASOPHIL COUNT 0.1 K/uL (0-0.1); EOSINOPHIL (%) 1.1 % (0-5); EOSINOPHIL COUNT 0.2 K/uL (0-0.3); HEMATOCRIT 36.8 % (38.0-50.0); HEMOGLOBIN 12.1 G/DL (12.5-16.6); IMMATURE GRANULOCYTE (%) 1.3 % (0.0-0.7); LYMPHOCYTE (%) 8.8 % (15-42); LYMPHOCYTE COUNT 1.2 K/uL (1.0-2.8); MCH 33.7 PG (29.0-34.0); MCHC 32.9 G/DL (30.0-36.0); MCV 102.5 FL (86-99); MONOCYTE (%) 9.6 % (3-12); MONOCYTE COUNT 1.4 K/uL (0-0.8); NEUTROPHIL (%) 78.8 % (45-76); NEUTROPHIL COUNT 11.2 K/uL (1.8-6.4); PLATELET COUNT 235 K/uL (156-360); RBC DIS.WIDTH-CV 16.9 % (11.8-14.6); RBC DIS.WIDTH-SD 63.9 % (39-53); RED BLOOD COUNT 3.59 M/uL (4.00-5.50); WHITE BLOOD COUNT 14.2 K/uL (4.1-10.2)
[2017-09-09 17:57] LABS: INTER. NORMALIZED RATIO 2.1
[2017-09-09 18:06] LABS: ALBUMIN 3.6 g/dL (3.2-4.8); CHLORIDE 87 mEq/L (99-109); MAGNESIUM 1.8 mg/dL (1.3-2.7); SODIUM 139 mEq/L (136-147)
[2017-09-09 18:08] LABS: GLUCOSE 154 mg/dL (70-99); TOTAL PROTEIN 7.7 g/dL (6.4-8.3)
[2017-09-09 18:10] LABS: TOTAL BILIRUBIN 0.8 mg/dL (0.0-1.0)
[2017-09-09 18:12] LABS: ALKALINE PHOSPHATASE 122 IU/L (3-129); CREATININE 2.1 mg/dL (0.6-1.3); GFR ESTIMATE (CALCULATED) 32 mL/min/ (58.99-99999); PHOSPHORUS 3.8 mg/dL (2.5-4.9)
[2017-09-09 18:13] LABS: AST (GOT) 14 IU/L (2-34); UREA NITROGEN (BUN) 19 mg/dL (9-23)
[2017-09-09 18:15] LABS: ALT (GPT) 11 IU/L (3-49)
[2017-09-09] MEDS ORDERED: CALCIUM ACETAT667 MG PO (22:02)
[2017-09-09] MEDS ORDERED: LYRICA75 MG PO (22:03)
[2017-09-09] MEDS ORDERED: COUMADIN1 MG PO (22:05)
[2017-09-09 23:47] VITALS: BP 108/57
[2017-09-10 04:09] VITALS: BP 157/90
[2017-09-10 06:50] LABS: INTER. NORMALIZED RATIO 2.3
[2017-09-10 09:15] VITALS: BP 102/54
[2017-09-10 16:01] VITALS: BP 108/54
[2017-09-10 19:44] VITALS: BP 111/63
[2017-09-10 23:41] VITALS: BP 140/96
[2017-09-11 08:28] LABS: BASOPHIL (%) 0.5 % (0-1); BASOPHIL COUNT 0.1 K/uL (0-0.1); EOSINOPHIL (%) 2.2 % (0-5); EOSINOPHIL COUNT 0.3 K/uL (0-0.3); HEMATOCRIT 31.1 % (38.0-50.0); IMMATURE GRANULOCYTE (%) 1.2 % (0.0-0.7); LYMPHOCYTE (%) 6.7 % (15-42); LYMPHOCYTE COUNT 0.9 K/uL (1.0-2.8); MCH 33.1 PG (29.0-34.0); MCHC 32.5 G/DL (30.0-36.0); MONOCYTE (%) 9.9 % (3-12); MONOCYTE COUNT 1.3 K/uL (0-0.8); NEUTROPHIL (%) 79.5 % (45-76); NEUTROPHIL COUNT 10.3 K/uL (1.8-6.4); PLATELET COUNT 195 K/uL (156-360); RBC DIS.WIDTH-CV 16.8 % (11.8-14.6); RBC DIS.WIDTH-SD 62.2 % (39-53); RED BLOOD COUNT 3.05 M/uL (4.00-5.50)
[2017-09-11 08:38] LABS: CHLORIDE 85 MEQ/L (99-109); GLUCOSE 125 mg/dL (70-99); PHOSPHORUS 7.5 mg/dL (2.5-4.9); POTASSIUM 4.8 MEQ/L (3.7-5.4); VANCOMYCIN, TROUGH 14.3 MCG/ML (10-20)
[2017-09-11 08:46] LABS: HEMOGLOBIN 10.1 G/DL (12.5-16.6)
[2017-09-11 08:51] LABS: CREATININE 3.8 MG/DL (0.6-1.3); GFR ESTIMATE (CALCULATED) 16 mL/min/ (58.99-99999); SODIUM 128 MEQ/L (136-147); UREA NITROGEN (BUN) 47 mg/dL (9-23)
[2017-09-11 08:53] LABS: INTER. NORMALIZED RATIO 2.8
[2017-09-11 12:18] LABS: HEPATITIS B SURFACE ANTIBODY Nonreactive; HEPATITIS B SURFACE ANTIGEN Nonreactive
[2017-09-11 16:21] VITALS: BP 95/52
[2017-09-11 20:10] VITALS: BP 84/43
[2017-09-12] VITALS (9 sets, daily range): BP systolic 87–142; BP diastolic 42–67
[2017-09-12 10:18] LABS: INTER. NORMALIZED RATIO 1.8
[2017-09-12 20:36] LABS: INTER. NORMALIZED RATIO 1.6
[2017-09-13 04:53] VITALS: BP 124/58
[2017-09-13 07:47] LABS: INTER. NORMALIZED RATIO 1.5
[2017-09-13 07:52] LABS: BASOPHIL (%) 0.4 % (0-1); BASOPHIL COUNT 0.1 K/uL (0-0.1); EOSINOPHIL (%) 1.9 % (0-5); EOSINOPHIL COUNT 0.3 K/uL (0-0.3); HEMATOCRIT 33.1 % (38.0-50.0); HEMOGLOBIN 10.2 G/DL (12.5-16.6); IMMATURE GRANULOCYTE (%) 1.8 % (0.0-0.7); LYMPHOCYTE (%) 6.6 % (15-42); LYMPHOCYTE COUNT 0.9 K/uL (1.0-2.8); MCH 32.4 PG (29.0-34.0); MCHC 30.8 G/DL (30.0-36.0); MCV 105.1 FL (86-99); MONOCYTE (%) 10.6 % (3-12); MONOCYTE COUNT 1.5 K/uL (0-0.8); NEUTROPHIL (%) 78.7 % (45-76); PLATELET COUNT 212 K/uL (156-360); RBC DIS.WIDTH-CV 16.5 % (11.8-14.6); RBC DIS.WIDTH-SD 63.7 % (39-53); RED BLOOD COUNT 3.15 M/uL (4.00-5.50)
[2017-09-13 08:03] LABS: CHLORIDE 87 MEQ/L (99-109); CREATININE 3.7 MG/DL (0.6-1.3); GFR ESTIMATE (CALCULATED) 17 mL/min/ (58.99-99999); GLUCOSE 161 mg/dL (70-99); POTASSIUM 4.8 MEQ/L (3.7-5.4); SODIUM 133 MEQ/L (136-147); UREA NITROGEN (BUN) 48 mg/dL (9-23)
[2017-09-13 12:03] VITALS: BP 116/59
[2017-09-13 19:33] VITALS: BP 101/58
[2017-09-14 00:31] VITALS: BP 111/68
[2017-09-14 03:20] VITALS: BP 118/72
[2017-09-14 05:51] LABS: BASOPHIL (%) 0.2 % (0-1); EOSINOPHIL (%) 0 % (0-5); HEMOGLOBIN 8.9 G/DL (12.5-16.6); IMMATURE GRANULOCYTE (%) 1.8 % (0.0-0.7); LYMPHOCYTE (%) 3.3 % (15-42); LYMPHOCYTE COUNT 0.5 K/uL (1.0-2.8); MCH 32.6 PG (29.0-34.0); MCHC 31.8 G/DL (30.0-36.0); MCV 102.6 FL (86-99); MONOCYTE (%) 9.2 % (3-12); MONOCYTE COUNT 1.5 K/uL (0-0.8); NEUTROPHIL (%) 85.5 % (45-76); NEUTROPHIL COUNT 13.9 K/uL (1.8-6.4); PLATELET COUNT 207 K/uL (156-360); RBC DIS.WIDTH-CV 16.1 % (11.8-14.6); RED BLOOD COUNT 2.73 M/uL (4.00-5.50); WHITE BLOOD COUNT 16.2 K/uL (4.1-10.2)
[2017-09-14 05:57] LABS: INTER. NORMALIZED RATIO 1.5
[2017-09-14 06:23] LABS: CHLORIDE 90 MEQ/L (99-109); GFR ESTIMATE (CALCULATED) 13 mL/min/ (58.99-99999); GLUCOSE 198 mg/dL (70-99); POTASSIUM 5.5 MEQ/L (3.7-5.4); SODIUM 133 MEQ/L (136-147); UREA NITROGEN (BUN) 64 mg/dL (9-23)
[2017-09-14 06:29] LABS: CREATININE 4.5 MG/DL (0.6-1.3)
[2017-09-14 10:08] LABS: COMMENTS - BLOOD GASES C+; DEVICE NCH; O2 FLOW 9 L/MIN; PCO2 56 mm Hg (35-45); PO2 70 mm Hg (80-100); SITE DIALYSIS LINE; pH 7.41 (7.35-7.45)
[2017-09-14 10:09] LABS: BASE EXCESS 9.5 mEq/L (-3 to +3); BICARBONATE 35.5 mEq/L (22-26); CARBOXY HGB 0 % (0-5); METHEMOGLOBIN 0.5 % (0-1.5)
[2017-09-14 16:32] VITALS: BP 116/74
[2017-09-14 19:18] VITALS: BP 90/54
[2017-09-14 23:31] VITALS: BP 120/66
[2017-09-15 04:31] VITALS: BP 93/50
[2017-09-15 05:22] LABS: BASOPHIL (%) 0.5 % (0-1); BASOPHIL COUNT 0.1 K/uL (0-0.1); EOSINOPHIL (%) 0.9 % (0-5); EOSINOPHIL COUNT 0.1 K/uL (0-0.3); HEMATOCRIT 26.1 % (38.0-50.0); HEMOGLOBIN 8.2 G/DL (12.5-16.6); IMMATURE GRANULOCYTE (%) 2.5 % (0.0-0.7); LYMPHOCYTE (%) 9.8 % (15-42); LYMPHOCYTE COUNT 1.3 K/uL (1.0-2.8); MCH 33.1 PG (29.0-34.0); MCHC 31.4 G/DL (30.0-36.0); MCV 105.2 FL (86-99); MONOCYTE (%) 12.3 % (3-12); MONOCYTE COUNT 1.6 K/uL (0-0.8); NEUTROPHIL COUNT 9.5 K/uL (1.8-6.4); PLATELET COUNT 203 K/uL (156-360); RBC DIS.WIDTH-CV 16.4 % (11.8-14.6); RBC DIS.WIDTH-SD 63.7 % (39-53); RED BLOOD COUNT 2.48 M/uL (4.00-5.50); WHITE BLOOD COUNT 12.8 K/uL (4.1-10.2)
[2017-09-15 05:25] LABS: INTER. NORMALIZED RATIO 1.6
[2017-09-15 05:54] LABS: CHLORIDE 90 MEQ/L (99-109); CREATININE 2.8 MG/DL (0.6-1.3); GFR ESTIMATE (CALCULATED) 23 mL/min/ (58.99-99999); GLUCOSE 155 mg/dL (70-99); POTASSIUM 3.7 MEQ/L (3.7-5.4); SODIUM 137 MEQ/L (136-147); UREA NITROGEN (BUN) 30 mg/dL (9-23)
[2017-09-15 07:26] VITALS: BP 122/61
[2017-09-15 11:21] VITALS: BP 146/62
[2017-09-15 15:52] VITALS: BP 111/53
[2017-09-15 20:07] VITALS: BP 111/61
[2017-09-16] VITALS (7 sets, daily range): BP systolic 110–144; BP diastolic 60–70
[2017-09-16 06:24] LABS: BASOPHIL (%) 0.6 % (0-1); BASOPHIL COUNT 0.1 K/uL (0-0.1); EOSINOPHIL (%) 0.1 % (0-5); HEMATOCRIT 28.4 % (38.0-50.0); HEMOGLOBIN 8.8 G/DL (12.5-16.6); IMMATURE GRANULOCYTE (%) 3.6 % (0.0-0.7); LYMPHOCYTE (%) 2.7 % (15-42); LYMPHOCYTE COUNT 0.4 K/uL (1.0-2.8); MCH 32.6 PG (29.0-34.0); MCV 105.2 FL (86-99); MONOCYTE (%) 4.7 % (3-12); MONOCYTE COUNT 0.7 K/uL (0-0.8); NEUTROPHIL (%) 88.3 % (45-76); NEUTROPHIL COUNT 12.6 K/uL (1.8-6.4); PLATELET COUNT 244 K/uL (156-360); RBC DIS.WIDTH-CV 16.5 % (11.8-14.6); RBC DIS.WIDTH-SD 62.7 % (39-53); WHITE BLOOD COUNT 14.3 K/uL (4.1-10.2)
[2017-09-16 06:37] LABS: INTER. NORMALIZED RATIO 1.8
[2017-09-16 06:41] LABS: CHLORIDE 88 MEQ/L (99-109); GLUCOSE 175 mg/dL (70-99); SODIUM 134 MEQ/L (136-147); UREA NITROGEN (BUN) 45 mg/dL (9-23)
[2017-09-16 06:44] LABS: GFR ESTIMATE (CALCULATED) 15 mL/min/ (58.99-99999); POTASSIUM 4.8 MEQ/L (3.7-5.4)
[2017-09-16 17:25] LABS: COMMENTS - BLOOD GASES C+; DEVICE HFNC; O2 FLOW 10 L/MIN; SITE RR; TOTAL RESP RATE 20 resp/min
[2017-09-16 17:26] LABS: BASE EXCESS 13.9 mEq/L (-3 to +3); BICARBONATE 38.9 mEq/L (22-26); CARBOXY HGB 0 % (0-5); METHEMOGLOBIN 0.3 % (0-1.5); O2 SATURATION (CALCULATED) 89 % (95-99); PCO2 51 mm Hg (35-45); PO2 54 mm Hg (80-100); pH 7.49 (7.35-7.45)
[2017-09-17 05:16] VITALS: BP 128/75
[2017-09-17 07:08] LABS: INTER. NORMALIZED RATIO 2.3
[2017-09-17 07:51] VITALS: BP 130/60
[2017-09-17 11:12] VITALS: BP 118/59
[2017-09-17 16:14] VITALS: BP 134/76
[2017-09-17 19:40] VITALS: BP 128/59
[2017-09-17 23:42] VITALS: BP 146/85
[2017-09-18 06:25] LABS: INTER. NORMALIZED RATIO 2.2
[2017-09-18 08:43] VITALS: BP 129/60
[2017-09-18 09:57] LABS: BASOPHIL (%) 0.2 % (0-1); EOSINOPHIL (%) 0 % (0-5); HEMATOCRIT 27.3 % (38.0-50.0); HEMOGLOBIN 8.5 G/DL (12.5-16.6); IMMATURE GRANULOCYTE (%) 2.6 % (0.0-0.7); LYMPHOCYTE (%) 3.3 % (15-42); LYMPHOCYTE COUNT 0.4 K/uL (1.0-2.8); MCH 32.7 PG (29.0-34.0); MCHC 31.1 G/DL (30.0-36.0); MONOCYTE COUNT 0.7 K/uL (0-0.8); NEUTROPHIL (%) 88.9 % (45-76); NEUTROPHIL COUNT 11.5 K/uL (1.8-6.4); PLATELET COUNT 269 K/uL (156-360); RBC DIS.WIDTH-CV 16.4 % (11.8-14.6); RBC DIS.WIDTH-SD 62.6 % (39-53); WHITE BLOOD COUNT 12.9 K/uL (4.1-10.2)
[2017-09-18 10:00] LABS: CHLORIDE 87 MEQ/L (99-109); POTASSIUM 4.4 MEQ/L (3.7-5.4); SODIUM 132 MEQ/L (136-147)
[2017-09-18 10:06] LABS: CREATININE 3.8 MG/DL (0.6-1.3); GFR ESTIMATE (CALCULATED) 16 mL/min/ (58.99-99999); PHOSPHORUS 6.6 mg/dL (2.5-4.9); UREA NITROGEN (BUN) 56 mg/dL (9-23)
[2017-09-18 10:11] LABS: GLUCOSE 325 mg/dL (70-99)
[2017-09-18 16:10] VITALS: BP 82/42
[2017-09-18 23:35] VITALS: BP 109/61
[2017-09-19 03:25] VITALS: BP 118/60
[2017-09-19 07:05] LABS: INTER. NORMALIZED RATIO 1.8
[2017-09-19 07:57] VITALS: BP 119/57
[2017-09-19 11:29] VITALS: BP 103/54
[2017-09-19 16:28] VITALS: BP 121/60
[2017-09-19 20:43] VITALS: BP 115/58
[2017-09-20] VITALS (7 sets, daily range): BP systolic 120–167; BP diastolic 61–76
[2017-09-20 06:13] LABS: INTER. NORMALIZED RATIO 1.9
[2017-09-21 04:01] VITALS: BP 130/79
[2017-09-21 06:15] LABS: INTER. NORMALIZED RATIO 1.8
[2017-09-21 08:46] LABS: HEMATOCRIT 29.5 % (38.0-50.0); HEMOGLOBIN 9.2 G/DL (12.5-16.6); MCH 32.5 PG (29.0-34.0); MCHC 31.2 G/DL (30.0-36.0); MCV 104.2 FL (86-99); NRBC (%) 0.2 /100 WBC (0-0); PLATELET COUNT 271 K/uL (156-360); RBC DIS.WIDTH-CV 16.9 % (11.8-14.6); RBC DIS.WIDTH-SD 62.7 % (39-53); RED BLOOD COUNT 2.83 M/uL (4.00-5.50); WHITE BLOOD COUNT 14.1 K/uL (4.1-10.2)
[2017-09-21 09:01] LABS: CHLORIDE 89 MEQ/L (99-109); POTASSIUM 4.5 MEQ/L (3.7-5.4); SODIUM 133 MEQ/L (136-147)
[2017-09-21 09:08] LABS: GFR ESTIMATE (CALCULATED) 13 mL/min/ (58.99-99999); GLUCOSE 291 mg/dL (70-99); PHOSPHORUS 4.9 mg/dL (2.5-4.9); UREA NITROGEN (BUN) 80 mg/dL (9-23)
[2017-09-21 09:12] LABS: CREATININE 4.5 MG/DL (0.6-1.3)
[2017-09-21 13:45] VITALS: BP 166/77
[2017-09-21 17:35] VITALS: BP 138/77
[2017-09-21 19:43] VITALS: BP 140/66
[2017-09-22 03:51] VITALS: BP 108/53
[2017-09-22 07:04] LABS: INTER. NORMALIZED RATIO 1.6
[2017-09-22 07:38] VITALS: BP 129/62
[2017-09-22 11:50] VITALS: BP 133/65
[2017-09-22] MEDS ORDERED: COUMADIN3 MG PO (12:40)
[2017-09-22] MEDS ORDERED: LEVEMIR100 UNIT/2 SC (12:41)
[2017-09-22] MEDS ORDERED: AMITRIPTYLINE H25 MG PO (12:41)
[2017-09-22] MEDS ORDERED: NOVOLOG 10100 UNITS/ SC (12:42)
[2017-09-22] MEDS ORDERED: PREDNISONE10 MG PO (12:43)
[2017-09-22 15:51] VITALS: BP 128/80
== END 2017-09-22 18:34 | DRG 239 ==
LOC: EME 17:27 → 3EAST 22:04 → EDOF 22:04 → ENRESERV 22:18 → 3EAST 23:36
PROVIDERS: Emergency Medicine; Internal Medicine; Internal Medicine Nephrology; Internal Medicine Pulmonary Disease; Surgery
PROC: 5A1D70Z Performance of Urinary Filtration, Intermittent, Less than 6 Hours Per Day (ICD-10-PCS; 2017-09-11)
PROC: 0Y6D0Z3 Detachment at Left Upper Leg, Low, Open Approach (ICD-10-PCS; principal; 2017-09-13)
DX: E11.52 Type 2 diabetes mellitus with diabetic peripheral angiopathy with gangrene (principal); I70.262 Atherosclerosis of native arteries of extremities with gangrene, left leg; L03.116 Cellulitis of left lower limb; J96.21 Acute and chronic respiratory failure with hypoxia; J44.1 Chronic obstructive pulmonary disease with (acute) exacerbation; J98.11 Atelectasis; T40.2X5A Adverse effect of other opioids, initial encounter; E11.22 Type 2 diabetes mellitus with diabetic chronic kidney disease; I13.2 Hypertensive heart and chronic kidney disease with heart failure and with stage 5 chronic kidney disease, or end stage renal disease; N18.6 End stage renal disease; I50.9 Heart failure, unspecified; I95.3 Hypotension of hemodialysis; I27.20 Pulmonary hypertension, unspecified; I95.89 Other hypotension; F33.9 Major depressive disorder, recurrent, unspecified; I48.2 Chronic atrial fibrillation; E66.01 Morbid (severe) obesity due to excess calories; Z68.35 Body mass index [BMI] 35.0-35.9, adult; G47.33 Obstructive sleep apnea (adult) (pediatric); D63.1 Anemia in chronic kidney disease; I25.10 Atherosclerotic heart disease of native coronary artery without angina pectoris; E03.9 Hypothyroidism, unspecified; M79.7 Fibromyalgia; E78.5 Hyperlipidemia, unspecified; K21.9 Gastro-esophageal reflux disease without esophagitis; N40.0 Benign prostatic hyperplasia without lower urinary tract symptoms; Z87.891 Personal history of nicotine dependence; H91.90 Unspecified hearing loss, unspecified ear; Z89.611 Acquired absence of right leg above knee; Z99.2 Dependence on renal dialysis
CPT/HCPCS: 36415; 36600; 71045; 73630; 80048; 80053; 80069; 80202; 82803; 82948; 83605; 83735; 84100; 85025; 85027; 85610; 86706; 86850; 86900; 86901; 86920; 87040; 87070; 87075; 87205; 87340; 88307; 93005; 93926; 94010; 94640; 94640 76; 94760; 94799; 99202; 99281; 99285; A6214; J0330; J0690; J0696; J0881; J1270; J1644; J1815; J2543; J2920; J2930; J3010; J3370; J3430; J7040; J7050; J7512; P9047; S0020

== ENCOUNTER → 2017-10-07 | Outpatient (CLI) | payer OTHER, MEDICARE ==
[~2017-10-07] MED LIST changes: +AMITRIPTYLINE H25 MG PO; +CALCIUM ACETAT667 MG PO
== END ==
LOC: AMB 13:00
PROC: 8E0YXY8 Suture Removal from Lower Extremity (ICD-10-PCS; principal; 2017-10-07)
DX: Z48.02 Encounter for removal of sutures (principal); Z89.612 Acquired absence of left leg above knee; R60.0 Localized edema; M79.652 Pain in left thigh; I70.262 Atherosclerosis of native arteries of extremities with gangrene, left leg; Z88.1 Allergy status to other antibiotic agents; Z91.041 Radiographic dye allergy status
CPT/HCPCS: 99213

== ENCOUNTER 2017-10-13 12:03 | Inpatient (IN) | payer OTHER, MEDICARE ==
[~2017-10-13] VITALS: Ht 142.2 cm; Wt 126.1 kg
[2017-10-13] VITALS (12 sets, daily range): BP systolic 108–145; BP diastolic 55–70
[2017-10-13 12:43] LABS: BASOPHIL (%) 0.3 % (0-1); EOSINOPHIL (%) 1.2 % (0-5); EOSINOPHIL COUNT 0.2 K/uL (0-0.3); HEMOGLOBIN 9.3 G/DL (12.5-16.6); IMMATURE GRANULOCYTE (%) 1.3 % (0.0-0.7); LYMPHOCYTE (%) 10.4 % (15-42); LYMPHOCYTE COUNT 1.3 K/uL (1.0-2.8); MCH 33.6 PG (29.0-34.0); MCHC 32.1 G/DL (30.0-36.0); MCV 104.7 FL (86-99); MONOCYTE (%) 11.9 % (3-12); MONOCYTE COUNT 1.5 K/uL (0-0.8); NEUTROPHIL (%) 74.9 % (45-76); NEUTROPHIL COUNT 9.6 K/uL (1.8-6.4); PLATELET COUNT 179 K/uL (156-360); RBC DIS.WIDTH-CV 17.4 % (11.8-14.6); RBC DIS.WIDTH-SD 67.7 % (39-53); RED BLOOD COUNT 2.77 M/uL (4.00-5.50); WHITE BLOOD COUNT 12.9 K/uL (4.1-10.2)
[2017-10-13 12:46] LABS: INTER. NORMALIZED RATIO 4.4
[2017-10-13 12:48] LABS: PTT 38.8 SEC (25-37)
[2017-10-13 12:52] LABS: CHLORIDE 100 mEq/L (99-109); POTASSIUM 5.8 mEq/L (3.7-5.4); SODIUM 135 mEq/L (136-147)
[2017-10-13 12:54] LABS: GLUCOSE 148 mg/dL (70-99)
[2017-10-13 12:58] LABS: CREATININE 3.6 mg/dL (0.6-1.3); GFR ESTIMATE (CALCULATED) 17 mL/min/ (58.99-99999); UREA NITROGEN (BUN) 30 mg/dL (9-23)
[2017-10-13 13:01] LABS: TROP-I INTERPRETATION NEGATIVE; TROPONIN-I 0.04 ng/mL (0.0-0.30)
[2017-10-13 13:23] LABS: COMMENTS - BLOOD GASES A+C+; O2 FLOW 4 L/MIN; SITE RIGHT RADIAL
[2017-10-13 13:24] LABS: BICARBONATE 24.2 mEq/L (22-26); CARBOXY HGB 1.2 % (0-5); DEVICE NAS CAN; METHEMOGLOBIN 0.7 % (0-1.5); PCO2 47 mm Hg (35-45); PO2 61 mm Hg (80-100); TOTAL RESP RATE 20 resp/min; pH 7.32 (7.35-7.45)
[2017-10-14] VITALS (26 sets, daily range): BP systolic 86–137; BP diastolic 58–79
[2017-10-14 05:49] LABS: HEMATOCRIT 31.1 % (38.0-50.0); HEMOGLOBIN 9.7 G/DL (12.5-16.6); MCH 32.9 PG (29.0-34.0); MCHC 31.2 G/DL (30.0-36.0); MCV 105.4 FL (86-99); PLATELET COUNT 174 K/uL (156-360); RBC DIS.WIDTH-CV 17.2 % (11.8-14.6); RBC DIS.WIDTH-SD 66.4 % (39-53); RED BLOOD COUNT 2.95 M/uL (4.00-5.50); WHITE BLOOD COUNT 9.5 K/uL (4.1-10.2)
[2017-10-14 05:57] LABS: PTT 40.6 SEC (25-37)
[2017-10-14 06:09] LABS: INTER. NORMALIZED RATIO 4.8
[2017-10-14 06:12] LABS: CHLORIDE 103 MEQ/L (99-109); GFR ESTIMATE (CALCULATED) 14 mL/min/ (58.99-99999); POTASSIUM 5.5 MEQ/L (3.7-5.4); SODIUM 137 MEQ/L (136-147); UREA NITROGEN (BUN) 42 mg/dL (9-23)
[2017-10-14 06:20] LABS: CREATININE 4.4 MG/DL (0.6-1.3); GLUCOSE 67 mg/dL (70-99)
[2017-10-14 08:23] LABS: VANCOMYCIN, TROUGH 11.1 MCG/ML (10-20)
[2017-10-14] MEDS ORDERED: ARTIFICIAL TEAR15 M1 BOTH EYES (15:09)
[2017-10-14] MEDS ORDERED: LASIX80 MG PO (15:10)
[2017-10-14] MEDS ORDERED: BRINTELLIX20 MG PO (15:13)
[2017-10-14] MEDS ORDERED: ZANAFLEX4 M1 PO (15:13)
[2017-10-14] MEDS ORDERED: VITAMIN D32000 UNI1 PO (15:14)
[2017-10-14] MEDS ORDERED: ROBITUSSIN100 MG/5 M PO (15:15)
[2017-10-14] MEDS ORDERED: DUONEB 2.5-0.5 M3 ML AEROSOL (15:16)
[2017-10-15] VITALS (19 sets, daily range): BP systolic 91–128; BP diastolic 52–77
[2017-10-15 14:46] LABS: SITE RB
[2017-10-15 14:47] LABS: COMMENTS - BLOOD GASES C+; DEVICE VM; FI02 40 %; PCO2 50 mm Hg (35-45); PO2 64 mm Hg (80-100); TOTAL RESP RATE 18 resp/min; pH 7.34 (7.35-7.45)
[2017-10-15 14:48] LABS: BASE EXCESS 0.7 mEq/L (-3 to +3); BICARBONATE 27 mEq/L (22-26); CARBOXY HGB 0.6 % (0-5); METHEMOGLOBIN 0.5 % (0-1.5)
[2017-10-16 04:06] VITALS: BP 122/67
[2017-10-16 09:01] LABS: CHLORIDE 98 MEQ/L (99-109); CREATININE 4.3 MG/DL (0.6-1.3); GFR ESTIMATE (CALCULATED) 14 mL/min/ (58.99-99999); POTASSIUM 4.4 MEQ/L (3.7-5.4); SODIUM 134 MEQ/L (136-147); UREA NITROGEN (BUN) 44 mg/dL (9-23); VANCOMYCIN, TROUGH 13.1 MCG/ML (10-20)
[2017-10-16 09:04] LABS: GLUCOSE 155 mg/dL (70-99)
[2017-10-16 09:05] LABS: BASOPHIL (%) 0.8 % (0-1); BASOPHIL COUNT 0.1 K/uL (0-0.1); EOSINOPHIL (%) 2.9 % (0-5); EOSINOPHIL COUNT 0.2 K/uL (0-0.3); HEMATOCRIT 31.7 % (38.0-50.0); HEMOGLOBIN 9.6 G/DL (12.5-16.6); IMMATURE GRANULOCYTE (%) 3.3 % (0.0-0.7); LYMPHOCYTE (%) 11.9 % (15-42); MCH 31.9 PG (29.0-34.0); MCHC 30.3 G/DL (30.0-36.0); MCV 105.3 FL (86-99); MONOCYTE (%) 11.5 % (3-12); MONOCYTE COUNT 0.9 K/uL (0-0.8); NEUTROPHIL (%) 69.6 % (45-76); NEUTROPHIL COUNT 5.6 K/uL (1.8-6.4); PLATELET COUNT 188 K/uL (156-360); RBC DIS.WIDTH-CV 16.9 % (11.8-14.6); RBC DIS.WIDTH-SD 65.6 % (39-53); RED BLOOD COUNT 3.01 M/uL (4.00-5.50)
[2017-10-16 12:30] VITALS: BP 121/57
[2017-10-16 16:44] VITALS: BP 85/53
[2017-10-16 22:08] VITALS: BP 70/40
[2017-10-16 23:40] VITALS: BP 109/58
[2017-10-17 07:15] VITALS: BP 129/63
[2017-10-17 16:00] VITALS: BP 149/65
[2017-10-17 22:55] VITALS: BP 132/62
[2017-10-18 04:14] VITALS: BP 156/71
[2017-10-18 07:15] VITALS: BP 153/66
[2017-10-18 15:30] VITALS: BP 127/60
[2017-10-18 22:24] LABS: PTT 28.4 SEC (25-37)
[2017-10-18 22:39] LABS: INTER. NORMALIZED RATIO 1.3
[2017-10-18 22:57] VITALS: BP 177/75
[2017-10-19 06:55] VITALS: BP 168/83
[2017-10-19 08:19] LABS: INTER. NORMALIZED RATIO 1.3
[2017-10-19 08:24] LABS: HEMATOCRIT 31.6 % (38.0-50.0); HEMOGLOBIN 9.6 G/DL (12.5-16.6); MCHC 30.4 G/DL (30.0-36.0); MCV 105.3 FL (86-99); PLATELET COUNT 213 K/uL (156-360); RBC DIS.WIDTH-CV 16.6 % (11.8-14.6); RBC DIS.WIDTH-SD 64.5 % (39-53); WHITE BLOOD COUNT 12.5 K/uL (4.1-10.2)
[2017-10-19 08:46] LABS: ABS NEUTROPHIL COUNT 10.8; ANISOCYTOSIS 1+; BAND NEUTROPHILS 0.9 % (0-8.0); EOSINOPHIL ABS CT 0; HYPOCHROMASIA 1+; LYMPHOCYTES 9.6 % (15.0-45.0); MACROCYTES 2+; METAMYELOCYTES 1.8 %; MONOCYTES 1.7 % (0-9.0); MYELOCYTES 0.9 %; PLAT.SUFFICIENCY ADEQUATE; POLYCHROMASIA 1+; SEG.NEUTROPHILS 85.1 % (46.0-76.0)
[2017-10-19 08:48] LABS: CHLORIDE 100 MEQ/L (99-109); GLUCOSE 164 mg/dL (70-99); PHOSPHORUS 5.5 mg/dL (2.5-4.9); SODIUM 138 MEQ/L (136-147); UREA NITROGEN (BUN) 64 mg/dL (9-23); VANCOMYCIN, TROUGH 11.8 MCG/ML (10-20)
[2017-10-19 08:52] LABS: CREATININE 5.1 MG/DL (0.6-1.3); GFR ESTIMATE (CALCULATED) 12 mL/min/ (58.99-99999)
[2017-10-19 08:53] LABS: POTASSIUM 5.7 MEQ/L (3.7-5.4)
[2017-10-19 15:25] VITALS: BP 135/60
[2017-10-19 23:04] VITALS: BP 140/63
[2017-10-20 06:19] LABS: INTER. NORMALIZED RATIO 1.3
[2017-10-20 06:56] VITALS: BP 167/79
[2017-10-20 15:19] VITALS: BP 125/60
[2017-10-21 00:32] VITALS: BP 167/81
[2017-10-21 07:56] LABS: HEMATOCRIT 31.9 % (38.0-50.0); HEMOGLOBIN 9.7 G/DL (12.5-16.6); MCHC 30.4 G/DL (30.0-36.0); MCV 105.3 FL (86-99); NRBC (%) 0.1 /100 WBC (0-0); PLATELET COUNT 223 K/uL (156-360); RBC DIS.WIDTH-CV 16.5 % (11.8-14.6); RBC DIS.WIDTH-SD 63.8 % (39-53); RED BLOOD COUNT 3.03 M/uL (4.00-5.50); WHITE BLOOD COUNT 14.6 K/uL (4.1-10.2)
[2017-10-21 08:02] LABS: INTER. NORMALIZED RATIO 1.3
[2017-10-21 08:16] LABS: ALBUMIN 3.1 G/DL (3.2-4.8); CHLORIDE 100 MEQ/L (99-109); POTASSIUM 5.2 MEQ/L (3.7-5.4); SODIUM 137 MEQ/L (136-147)
[2017-10-21 08:21] LABS: CREATININE 4.7 MG/DL (0.6-1.3); GFR ESTIMATE (CALCULATED) 13 mL/min/ (58.99-99999); GLUCOSE 184 mg/dL (70-99); UREA NITROGEN (BUN) 54 mg/dL (9-23)
[2017-10-21 08:27] LABS: ABS NEUTROPHIL COUNT 13.3; ANISOCYTOSIS 2+; ATYPICAL LYMPHOCYTE 0.9 %; BASOPH.STIPPLING 1+; EOSINOPHIL ABS CT 0; LYMPHOCYTES 1.7 % (15.0-45.0); MACROCYTES 2+; MONOCYTES 2.6 % (0-9.0); MYELOCYTES 3.4 %; PLAT.SUFFICIENCY ADEQUATE; POLYCHROMASIA 1+; SEG.NEUTROPHILS 91.4 % (46.0-76.0)
[2017-10-21 15:20] VITALS: BP 141/84
[2017-10-21 17:00] LABS: GLUCOSE 300 mg/dL (70-99)
[2017-10-22 00:31] VITALS: BP 120/60
[2017-10-22 05:49] LABS: INTER. NORMALIZED RATIO 1.4
[2017-10-22 07:33] VITALS: BP 130/63
[2017-10-22 15:30] VITALS: BP 148/67
[2017-10-22 23:17] VITALS: BP 140/65
[2017-10-23 05:27] LABS: HEMATOCRIT 34.7 % (38.0-50.0); HEMOGLOBIN 10.5 G/DL (12.5-16.6); MCH 31.6 PG (29.0-34.0); MCHC 30.3 G/DL (30.0-36.0); MCV 104.5 FL (86-99); NRBC (%) 0.1 /100 WBC (0-0); PLATELET COUNT 242 K/uL (156-360); RBC DIS.WIDTH-CV 16.6 % (11.8-14.6); RED BLOOD COUNT 3.32 M/uL (4.00-5.50); WHITE BLOOD COUNT 14.9 K/uL (4.1-10.2)
[2017-10-23 06:12] LABS: ALBUMIN 3.2 G/DL (3.2-4.8); ALKALINE PHOSPHATASE 70 IU/L (3-129); AST (GOT) 8 IU/L (2-34); CHLORIDE 97 MEQ/L (99-109); CREATININE 4.5 MG/DL (0.6-1.3); GFR ESTIMATE (CALCULATED) 13 mL/min/ (58.99-99999); POTASSIUM 5.4 MEQ/L (3.7-5.4); SODIUM 136 MEQ/L (136-147); TOTAL BILIRUBIN 0.4 MG/DL (0.0-1.0); TOTAL PROTEIN 5.8 G/DL (6.4-8.3); UREA NITROGEN (BUN) 50 mg/dL (9-23)
[2017-10-23 06:22] LABS: ALT (GPT) < 3 IU/L (3-49); GLUCOSE 115 mg/dL (70-99)
[2017-10-23 07:57] VITALS: BP 181/79
[2017-10-23 08:03] LABS: INTER. NORMALIZED RATIO 1.4
[2017-10-23 15:05] VITALS: BP 131/70
[2017-10-23 23:48] VITALS: BP 131/60
[2017-10-24 06:31] LABS: INTER. NORMALIZED RATIO 1.4
[2017-10-24 07:39] VITALS: BP 118/63
[2017-10-24 16:20] VITALS: BP 117/62
[2017-10-25 00:23] VITALS: BP 124/60
[2017-10-25 06:20] LABS: INTER. NORMALIZED RATIO 1.5
[2017-10-25 07:05] VITALS: BP 125/58
[2017-10-25 15:08] VITALS: BP 113/63
[2017-10-25 23:00] VITALS: BP 119/72
[2017-10-26 06:23] LABS: INTER. NORMALIZED RATIO 1.7
[2017-10-26 07:00] VITALS: BP 105/55
[2017-10-26 08:23] LABS: HEMATOCRIT 33.9 % (38.0-50.0); HEMOGLOBIN 10.3 G/DL (12.5-16.6); MCH 32.5 PG (29.0-34.0); MCHC 30.4 G/DL (30.0-36.0); MCV 106.9 FL (86-99); PLATELET COUNT 205 K/uL (156-360); RBC DIS.WIDTH-CV 17.3 % (11.8-14.6); RBC DIS.WIDTH-SD 67.8 % (39-53); RED BLOOD COUNT 3.17 M/uL (4.00-5.50); WHITE BLOOD COUNT 16.5 K/uL (4.1-10.2)
[2017-10-26 08:49] LABS: ALBUMIN 3.2 G/DL (3.2-4.8); CHLORIDE 98 MEQ/L (99-109); GFR ESTIMATE (CALCULATED) 10 mL/min/ (58.99-99999); GLUCOSE 114 mg/dL (70-99); PHOSPHORUS 5.6 mg/dL (2.5-4.9); SODIUM 135 MEQ/L (136-147)
[2017-10-26 08:50] LABS: CREATININE 5.8 MG/DL (0.6-1.3); UREA NITROGEN (BUN) 85 mg/dL (9-23)
[2017-10-26 08:56] LABS: ABS NEUTROPHIL COUNT 12.6; ANISOCYTOSIS 2+; ATYPICAL LYMPHOCYTE 1.7 %; BAND NEUTROPHILS 0.9 % (0-8.0); BASOPH.STIPPLING 1+; BASOPHILS 0.9 %; BURR CELLS 1+; EOSINOPHIL ABS CT 0; MACROCYTES 2+; MONOCYTES 6.1 % (0-9.0); MYELOCYTES 1.7 %; NUCLEATED RBC'S 0.9; PLAT.SUFFICIENCY ADEQUATE; POIKILOCYTOSIS 1+; SEG.NEUTROPHILS 75.7 % (46.0-76.0)
[2017-10-26 13:18] VITALS: BP 119/57
[2017-10-26 14:05] LABS: HEPATITIS B SURFACE ANTIBODY Nonreactive; HEPATITIS B SURFACE ANTIGEN Nonreactive
[2017-10-26 15:40] VITALS: BP 115/51
[2017-10-26 22:46] VITALS: BP 147/77
[2017-10-27 05:59] LABS: INTER. NORMALIZED RATIO 1.8
[2017-10-27 07:53] VITALS: BP 134/89
[2017-10-27] MEDS ORDERED: AMOX TR-K CLV1 EAC3 PO (14:01)
[2017-10-27] MEDS ORDERED: PRAVASTATIN SOD40 MG PO (14:03)
[2017-10-27] MEDS ORDERED: METOPROLOL SUCC25 MG PO (14:04)
[2017-10-27] MEDS ORDERED: DOCUSATE SODIU100 MG PO (14:05)
[2017-10-27] MEDS ORDERED: PANTOPRAZOLE SO40 MG PO (14:06)
[2017-10-27 15:14] VITALS: BP 109/59
== END 2017-10-27 18:59 | DRG 853 ==
LOC: EME 12:03 → 5EAST 14:09 → 4WEST 14:09 → EDOF 14:09 → CANRESERV 14:10 → ENRESERV 14:10 → 4WEST 17:28 → ENRESERV 10-15 17:37 → 5EAST 10-15 20:13
PROVIDERS: Emergency Medicine; Family Medicine; Internal Medicine; Internal Medicine Critical Care Medicine; Internal Medicine Nephrology; Surgery
DX: A41.9 Sepsis, unspecified organism (principal); N18.6 End stage renal disease; I13.2 Hypertensive heart and chronic kidney disease with heart failure and with stage 5 chronic kidney disease, or end stage renal disease; F33.9 Major depressive disorder, recurrent, unspecified; I87.1 Compression of vein; J98.11 Atelectasis; L03.114 Cellulitis of left upper limb; T82.898A Other specified complication of vascular prosthetic devices, implants and grafts, initial encounter; I70.268 Atherosclerosis of native arteries of extremities with gangrene, other extremity; Z68.44 Body mass index [BMI] 60.0-69.9, adult; E11.52 Type 2 diabetes mellitus with diabetic peripheral angiopathy with gangrene; E87.5 Hyperkalemia; E66.01 Morbid (severe) obesity due to excess calories; D63.1 Anemia in chronic kidney disease; E11.22 Type 2 diabetes mellitus with diabetic chronic kidney disease; E03.9 Hypothyroidism, unspecified; E78.00 Pure hypercholesterolemia, unspecified; G47.33 Obstructive sleep apnea (adult) (pediatric); I50.9 Heart failure, unspecified; E78.5 Hyperlipidemia, unspecified; I25.10 Atherosclerotic heart disease of native coronary artery without angina pectoris; I27.20 Pulmonary hypertension, unspecified; H91.90 Unspecified hearing loss, unspecified ear; J44.9 Chronic obstructive pulmonary disease, unspecified; K21.9 Gastro-esophageal reflux disease without esophagitis; N40.0 Benign prostatic hyperplasia without lower urinary tract symptoms; I48.2 Chronic atrial fibrillation; I95.9 Hypotension, unspecified; R09.02 Hypoxemia; M79.7 Fibromyalgia; Z99.81 Dependence on supplemental oxygen; Z99.2 Dependence on renal dialysis; Z89.611 Acquired absence of right leg above knee; Z87.891 Personal history of nicotine dependence; Z89.612 Acquired absence of left leg above knee; R79.1 Abnormal coagulation profile; T45.515A Adverse effect of anticoagulants, initial encounter; I99.8 Other disorder of circulatory system; Z79.01 Long term (current) use of anticoagulants; Z91.041 Radiographic dye allergy status; Z88.1 Allergy status to other antibiotic agents; Z79.4 Long term (current) use of insulin
CPT/HCPCS: 36415; 36600; 71045; 73130; 73140; 80047; 80048; 80048 91; 80053; 80069; 80202; 82948; 83605; 84484; 84999; 85025; 85027; 85610; 85730; 86706; 87040; 87340; 87641; 88305; 93005; 93930; 94760; 94799; 99281; 99285; C1725; C1769; C1894; J0690; J0881; J1200; J1644; J1815; J2543; J2765; J2930; J3010; J3370; J7030; J7050; J7512; P9047; S0020

== ENCOUNTER 2017-11-01 13:57 | Inpatient (IN) | payer OTHER, MEDICARE ==
[~2017-11-01] VITALS: Ht 182.9 cm; Wt 119.9 kg
[~2017-11-01 13:57] MED LIST changes: +DOCUSATE SODIU100 MG PO; +METOPROLOL SUCC25 MG PO; +PANTOPRAZOLE SO40 MG PO; +PRAVASTATIN SOD40 MG PO; +ROBITUSSIN100 MG/5 M PO; +ZANAFLEX4 M1 PO
[2017-11-01 14:36] LABS: BASOPHIL (%) 0.7 % (0-1); BASOPHIL COUNT 0.1 K/uL (0-0.1); EOSINOPHIL (%) 2.5 % (0-5); EOSINOPHIL COUNT 0.3 K/uL (0-0.3); HEMATOCRIT 33.9 % (38.0-50.0); HEMOGLOBIN 10.2 G/DL (12.5-16.6); IMMATURE GRANULOCYTE (%) 2.1 % (0.0-0.7); LYMPHOCYTE (%) 12.1 % (15-42); LYMPHOCYTE COUNT 1.4 K/uL (1.0-2.8); MCH 32.5 PG (29.0-34.0); MCHC 30.1 G/DL (30.0-36.0); MONOCYTE (%) 12.7 % (3-12); MONOCYTE COUNT 1.5 K/uL (0-0.8); NEUTROPHIL (%) 69.9 % (45-76); NEUTROPHIL COUNT 8.2 K/uL (1.8-6.4); PLATELET COUNT 156 K/uL (156-360); RBC DIS.WIDTH-CV 17.4 % (11.8-14.6); RBC DIS.WIDTH-SD 69.5 % (39-53); RED BLOOD COUNT 3.14 M/uL (4.00-5.50); WHITE BLOOD COUNT 11.7 K/uL (4.1-10.2)
[2017-11-01 14:41] LABS: COMMENTS - BLOOD GASES C+; DEVICE CANNULA; O2 FLOW 4 L/MIN; PCO2 61 mm Hg (35-45); SITE RB; pH 7.25 (7.35-7.45)
[2017-11-01 14:41] LABS: INTER. NORMALIZED RATIO 1.3
[2017-11-01 14:42] LABS: BASE EXCESS -1.2 mEq/L (-3 to +3); BICARBONATE 26.8 mEq/L (22-26); CARBOXY HGB 0 % (0-5); METHEMOGLOBIN 0.2 % (0-1.5); PO2 58 mm Hg (80-100)
[2017-11-01 14:44] LABS: ALBUMIN 3.2 g/dL (3.2-4.8); PTT 29.1 SEC (25-37)
[2017-11-01 14:45] LABS: CHLORIDE 104 mEq/L (99-109); SODIUM 141 mEq/L (136-147)
[2017-11-01 14:47] LABS: GLUCOSE 115 mg/dL (70-99); TOTAL PROTEIN 6.4 g/dL (6.4-8.3)
[2017-11-01 14:49] LABS: TOTAL BILIRUBIN 0.8 mg/dL (0.0-1.0)
[2017-11-01 14:50] LABS: ALKALINE PHOSPHATASE 81 IU/L (3-129); SERUM ETHYL ALCOHOL < 10 mg/dL
[2017-11-01 14:51] LABS: GFR ESTIMATE (CALCULATED) 15 mL/min/ (58.99-99999)
[2017-11-01 14:52] LABS: AST (GOT) 8 IU/L (2-34); CREATININE 4.2 mg/dL (0.6-1.3); UREA NITROGEN (BUN) 36 mg/dL (9-23)
[2017-11-01 14:54] LABS: ALT (GPT) 6 IU/L (3-49)
[2017-11-01 16:09] LABS: BICARBONATE 24.9 mEq/L (22-26); CARBOXY HGB 0 % (0-5); COMMENTS - BLOOD GASES A+C+; DEVICE 980; FI02 50 %; METHEMOGLOBIN 0 % (0-1.5); MODE SPONT; PCO2 58 mm Hg (35-45); PEEP 5 CM/H20; PO2 91 mm Hg (80-100); PRES. SUPPORT 12 CM/H2O; SITE LR; TOTAL RESP RATE 20 resp/min
[2017-11-01 16:10] LABS: pH 7.24 (7.35-7.45)
[2017-11-01 18:14] LABS: BICARBONATE 24.7 mEq/L (22-26); COMMENTS - BLOOD GASES A+C+; DEVICE HHFNC; FI02 50 %; O2 FLOW 40 L/MIN; PCO2 59 mm Hg (35-45); PO2 69 mm Hg (80-100); SITE RR; TOTAL RESP RATE 15 resp/min
[2017-11-01 18:15] LABS: BASE EXCESS -3.4 mEq/L (-3 to +3); CARBOXY HGB 0.1 % (0-5); METHEMOGLOBIN 0.1 % (0-1.5); O2 SATURATION (CALCULATED) 92.1 % (95-99); pH 7.23 (7.35-7.45)
[2017-11-01] MEDS ORDERED: OMEPRAZOLE20 MG PO (19:00)
[2017-11-01] MEDS ORDERED: COUMADIN3 MG PO (19:00)
[2017-11-01] MEDS ORDERED: COUMADIN2 MG PO (19:00)
[2017-11-01] MEDS ORDERED: ELAVIL25 MG PO (19:01)
[2017-11-01] MEDS ORDERED: NOVOLOG MI100 UNIT/3 SC (19:02)
[2017-11-01] MEDS ORDERED: LEVEMIR100 UNIT/2 SC (19:03)
[2017-11-01] MEDS ORDERED: AMOX TR-K CLV1 EAC3 PO (19:04)
[2017-11-01] MEDS ORDERED: PRAVACHOL40 MG PO (19:05)
[2017-11-01] MEDS ORDERED: TOPROL XL25 MG PO (19:05)
[2017-11-01] MEDS ORDERED: DOCUSATE SODIU100 MG PO (19:06)
[2017-11-01] MEDS ORDERED: AUGMENTIN875 MG PO (19:07)
[2017-11-01] MEDS ORDERED: SYNTHROID175 MCG PO (19:12)
[2017-11-01] MEDS ORDERED: PROSCAR5 MG PO (19:13)
[2017-11-01] MEDS ORDERED: PROAMATINE10 MG PO (19:14)
[2017-11-01] MEDS ORDERED: FLOMAX0.4 MG PO (19:14)
[2017-11-01] MEDS ORDERED: VITAMIN D32000 UNI1 PO (19:15)
[2017-11-01 19:18] LABS: APPEARANCE TURBID ((CLEAR)); BILIRUBIN NEGATIVE; BLOOD LARGE; COLOR YELLOW ((YELLOW)); GLUCOSE (STRIP) NEGATIVE; KETONES NEGATIVE; LEUKOCYTES MODERATE; NITRITE NEGATIVE; PROTEIN (STRIP) 100; SPECIFIC GRAVITY 1.016 (1.000-1.030); UROBILINOGEN 0.2 MG/DL (0.2-1.0)
[2017-11-01] MEDS ORDERED: WELLBUTRIN XL150 MG PO (19:18)
[2017-11-01] MEDS ORDERED: DUONEB 2.5-0.5 M3 ML AEROSOL (19:18)
[2017-11-01] MEDS ORDERED: B COMPLEX #11 EACH PO (19:18)
[2017-11-01] MEDS ORDERED: CALCIUM ACETAT667 MG PO (19:20)
[2017-11-01] MEDS ORDERED: OXAYDO5 MG PO (19:20)
[2017-11-01] MEDS ORDERED: LYRICA75 MG PO (19:21)
[2017-11-01 19:27] LABS: AMPHETAMINE NEGATIVE (500 ng/mL); BARBITURATES NEGATIVE (200 ng/mL); BENZODIAZEPINES NEGATIVE (150 ng/mL); BUPRENORPHINE NEGATIVE (10 ng/mL); COCAINE NEGATIVE (150 ng/mL); METHADONE NEGATIVE (200 ng/mL); METHAMPHETAMINE NEGATIVE (500 ng/mL); OPIATES (MORPHINE) NEGATIVE (100 ng/mL); OXYCODONE NEGATIVE (100 ng/mL); PHENCYCLIDINE NEGATIVE (25 ng/mL); PROPOXYPHENE NEGATIVE (300 ng/mL); THC CANNABINOIDS NEGATIVE (50 ng/mL); TRICYCLIC ANTIDEPRESSANTS NEGATIVE (300 ng/mL)
[2017-11-01 19:40] LABS: DEVICE 980; FI02 100 %; MECHANICAL RATE 20 resp/min; MODE A/C; PCO2 46 mm Hg (35-45); PEEP 5 CM/H20; PO2 264 mm Hg (80-100); SITE FEMRAL BY MD; TIDAL VOLUME 500 ML; TOTAL RESP RATE 20 resp/min
[2017-11-01 19:41] LABS: BASE EXCESS -3.8 mEq/L (-3 to +3); BICARBONATE 22.6 mEq/L (22-26)
[2017-11-01 19:50] VITALS: BP 138/59
[2017-11-01 19:54] LABS: BACTERIA 2+ /HPF; EPITHELIAL CELLS NONE SEEN /HPF; MUCUS NONE SEEN /LPF; UCUL ADDED? YES; WHITE BLOOD CELLS TNTC /HPF (0-5)
[2017-11-01 19:55] VITALS: BP 128/67
[2017-11-01 20:00] VITALS: BP 123/54
[2017-11-01 21:00] VITALS: BP 143/60
[2017-11-01 21:05] LABS: CHLORIDE 103 MEQ/L (99-109); CREATININE 3.9 MG/DL (0.6-1.3); GFR ESTIMATE (CALCULATED) 16 mL/min/ (58.99-99999); GLUCOSE 205 mg/dL (70-99); POTASSIUM 4.7 MEQ/L (3.7-5.4); SODIUM 137 MEQ/L (136-147); UREA NITROGEN (BUN) 39 mg/dL (9-23)
[2017-11-01 22:44] LABS: CARBOXY HGB 0 % (0-5); O2 SATURATION (CALCULATED) 90.2 % (95-99); PCO2 46 mm Hg (35-45); PO2 64 mm Hg (80-100); pH 7.22 (7.35-7.45)
[2017-11-01 22:45] LABS: BASE EXCESS -8.7 mEq/L (-3 to +3); BICARBONATE 18.8 mEq/L (22-26); DEVICE VENT; FI02 60 %; MECHANICAL RATE 20 resp/min; METHEMOGLOBIN 0 % (0-1.5); MODE ACVC; SITE A-LINE; TIDAL VOLUME 500 ML; TOTAL RESP RATE 20 resp/min
[2017-11-01 22:46] LABS: PEEP 5 CM/H20
[2017-11-01 23:11] LABS: INTER. NORMALIZED RATIO 1.3
[2017-11-01 23:14] LABS: PTT 27.2 SEC (25-37)
[2017-11-01 23:15] LABS: PHOSPHORUS 5.8 mg/dL (2.5-4.9)
[2017-11-01 23:43] LABS: CREATINE KINASE 11 IU/L (1-294); TRIGLYCERIDES 129 MG/DL (Normal: <150)
[2017-11-02 01:17] LABS: COMMENTS - BLOOD GASES C+; DEVICE VENT; FI02 60 %; MECHANICAL RATE 20 resp/min; MODE ACVC; O2 SATURATION (CALCULATED) 85.5 % (95-99); PCO2 43 mm Hg (35-45); PEEP 5 CM/H20; PO2 51 mm Hg (80-100); SITE A-LINE; TIDAL VOLUME 500 ML; TOTAL RESP RATE 20 resp/min; pH 7.28 (7.35-7.45)
[2017-11-02 01:18] LABS: BASE EXCESS -6.2 mEq/L (-3 to +3); BICARBONATE 20.2 mEq/L (22-26); CARBOXY HGB 0 % (0-5); METHEMOGLOBIN 0.4 % (0-1.5)
[2017-11-02 05:30] LABS: HEMATOCRIT 36.6 % (38.0-50.0); HEMOGLOBIN 11.1 G/DL (12.5-16.6); MCH 31.7 PG (29.0-34.0); MCHC 30.3 G/DL (30.0-36.0); MCV 104.6 FL (86-99); PLATELET COUNT 188 K/uL (156-360); RBC DIS.WIDTH-CV 17.3 % (11.8-14.6); RBC DIS.WIDTH-SD 66.6 % (39-53); WHITE BLOOD COUNT 17.2 K/uL (4.1-10.2)
[2017-11-02 05:40] LABS: AMYLASE 16 IU/L (1-118); CHLORIDE 106 MEQ/L (99-109); GFR ESTIMATE (CALCULATED) 15 mL/min/ (58.99-99999); GLUCOSE 188 mg/dL (70-99); LIPASE 4 U/L (1.0-51.0); POTASSIUM 4.6 MEQ/L (3.7-5.4); SODIUM 140 MEQ/L (136-147); UREA NITROGEN (BUN) 43 mg/dL (9-23)
[2017-11-02 07:54] LABS: VANCOMYCIN, TROUGH 14.5 MCG/ML (10-20)
[2017-11-02 08:01] VITALS: BP 92/44
[2017-11-02 10:13] LABS: THYROTROPIN (TSH) 1.9 MIU/L (0.4-5.5)
[2017-11-02 12:18] LABS: COMMENTS - BLOOD GASES C+; DEVICE VENT; FI02 90 %; MECHANICAL RATE 22 resp/min; MODE AC; PEEP 10 CM/H20; SITE ALINE; TIDAL VOLUME 500 ML; TOTAL RESP RATE 22 resp/min
[2017-11-02 12:19] LABS: BASE EXCESS -3.6 mEq/L (-3 to +3); BICARBONATE 21.5 mEq/L (22-26); CARBOXY HGB 0 % (0-5); METHEMOGLOBIN 0.1 % (0-1.5); O2 SATURATION (CALCULATED) 94.7 % (95-99); PCO2 38 mm Hg (35-45); PO2 99 mm Hg (80-100); pH 7.36 (7.35-7.45)
[2017-11-02 13:08] VITALS: BP 75/39
[2017-11-02 20:00] VITALS: BP 97/49
[2017-11-03] VITALS (13 sets, daily range): BP systolic 92–123; BP diastolic 47–67
[2017-11-03 05:17] LABS: BASOPHIL (%) 0.6 % (0-1); BASOPHIL COUNT 0.1 K/uL (0-0.1); EOSINOPHIL (%) 1.4 % (0-5); EOSINOPHIL COUNT 0.2 K/uL (0-0.3); HEMATOCRIT 34.3 % (38.0-50.0); HEMOGLOBIN 10.6 G/DL (12.5-16.6); IMMATURE GRANULOCYTE (%) 1.1 % (0.0-0.7); LYMPHOCYTE (%) 10.7 % (15-42); LYMPHOCYTE COUNT 1.4 K/uL (1.0-2.8); MCH 31.6 PG (29.0-34.0); MCHC 30.9 G/DL (30.0-36.0); MCV 102.4 FL (86-99); MONOCYTE (%) 11.2 % (3-12); MONOCYTE COUNT 1.5 K/uL (0-0.8); PLATELET COUNT 189 K/uL (156-360); RBC DIS.WIDTH-CV 17.2 % (11.8-14.6); RBC DIS.WIDTH-SD 65.1 % (39-53); RED BLOOD COUNT 3.35 M/uL (4.00-5.50); WHITE BLOOD COUNT 13.3 K/uL (4.1-10.2)
[2017-11-03 05:46] LABS: ALBUMIN 2.7 G/DL (3.2-4.8); ALKALINE PHOSPHATASE 71 IU/L (3-129); ALT (GPT) 3 IU/L (3-49); AST (GOT) 8 IU/L (2-34); CHLORIDE 104 MEQ/L (99-109); GFR ESTIMATE (CALCULATED) 13 mL/min/ (58.99-99999); GLUCOSE 172 mg/dL (70-99); MAGNESIUM 1.7 mg/dl (1.3-2.7); PHOSPHORUS 5.3 mg/dL (2.5-4.9); POTASSIUM 5.1 MEQ/L (3.7-5.4); SODIUM 138 MEQ/L (136-147); TOTAL BILIRUBIN 0.6 MG/DL (0.0-1.0); TOTAL PROTEIN 5.1 G/DL (6.4-8.3); UREA NITROGEN (BUN) 50 mg/dL (9-23)
[2017-11-03 05:56] LABS: CREATININE 4.8 MG/DL (0.6-1.3)
[2017-11-04] VITALS (20 sets, daily range): BP systolic 72–126; BP diastolic 44–64
[2017-11-04 06:19] LABS: COMMENTS - BLOOD GASES C; DEVICE VENT; FI02 50 %; SITE LF ALINE
[2017-11-04 06:20] LABS: BASE EXCESS 0.5 mEq/L (-3 to +3); BICARBONATE 25.4 mEq/L (22-26); CARBOXY HGB 0 % (0-5); MECHANICAL RATE 10 resp/min; METHEMOGLOBIN 0.3 % (0-1.5); MODE AC; O2 SATURATION (CALCULATED) 88.9 % (95-99); PCO2 41 mm Hg (35-45); PEEP 10 CM/H20; PO2 56 mm Hg (80-100); TIDAL VOLUME 500 ML; TOTAL RESP RATE 20 resp/min
[2017-11-04 07:02] LABS: BASOPHIL (%) 0.7 % (0-1); BASOPHIL COUNT 0.1 K/uL (0-0.1); EOSINOPHIL (%) 0.7 % (0-5); EOSINOPHIL COUNT 0.1 K/uL (0-0.3); HEMATOCRIT 34.3 % (38.0-50.0); HEMOGLOBIN 10.5 G/DL (12.5-16.6); IMMATURE GRANULOCYTE (%) 0.9 % (0.0-0.7); LYMPHOCYTE COUNT 1.1 K/uL (1.0-2.8); MCHC 30.6 G/DL (30.0-36.0); MCV 104.6 FL (86-99); MONOCYTE (%) 10.6 % (3-12); MONOCYTE COUNT 1.5 K/uL (0-0.8); NEUTROPHIL (%) 79.1 % (45-76); NEUTROPHIL COUNT 10.9 K/uL (1.8-6.4); PLATELET COUNT 172 K/uL (156-360); RBC DIS.WIDTH-CV 17.2 % (11.8-14.6); RBC DIS.WIDTH-SD 66.3 % (39-53); RED BLOOD COUNT 3.28 M/uL (4.00-5.50); WHITE BLOOD COUNT 13.8 K/uL (4.1-10.2)
[2017-11-04 08:48] LABS: CHLORIDE 97 MEQ/L (99-109); GLUCOSE 192 mg/dL (70-99); MAGNESIUM 1.6 mg/dl (1.3-2.7); POTASSIUM 4.4 MEQ/L (3.7-5.4); SODIUM 137 MEQ/L (136-147); UREA NITROGEN (BUN) 28 mg/dL (9-23); VANCOMYCIN, TROUGH 12.6 MCG/ML (10-20)
[2017-11-04 08:52] LABS: CREATININE 3.7 MG/DL (0.6-1.3); GFR ESTIMATE (CALCULATED) 17 mL/min/ (58.99-99999); PHOSPHORUS 3.2 mg/dL (2.5-4.9)
[2017-11-05] VITALS (24 sets, daily range): BP systolic 90–143; BP diastolic 44–76
[2017-11-05 05:32] LABS: BASOPHIL (%) 0.2 % (0-1); EOSINOPHIL (%) 0 % (0-5); HEMATOCRIT 32.4 % (38.0-50.0); HEMOGLOBIN 9.8 G/DL (12.5-16.6); IMMATURE GRANULOCYTE (%) 0.9 % (0.0-0.7); LYMPHOCYTE (%) 3.1 % (15-42); LYMPHOCYTE COUNT 0.4 K/uL (1.0-2.8); MCH 31.5 PG (29.0-34.0); MCHC 30.2 G/DL (30.0-36.0); MCV 104.2 FL (86-99); MONOCYTE (%) 1.2 % (3-12); MONOCYTE COUNT 0.1 K/uL (0-0.8); NEUTROPHIL (%) 94.6 % (45-76); NEUTROPHIL COUNT 10.7 K/uL (1.8-6.4); PLATELET COUNT 169 K/uL (156-360); RBC DIS.WIDTH-CV 17.1 % (11.8-14.6); RBC DIS.WIDTH-SD 66.1 % (39-53); RED BLOOD COUNT 3.11 M/uL (4.00-5.50); WHITE BLOOD COUNT 11.3 K/uL (4.1-10.2)
[2017-11-05 06:13] LABS: CHLORIDE 97 MEQ/L (99-109); GFR ESTIMATE (CALCULATED) 14 mL/min/ (58.99-99999); GLUCOSE 254 mg/dL (70-99); SODIUM 136 MEQ/L (136-147); UREA NITROGEN (BUN) 41 mg/dL (9-23)
[2017-11-05 06:15] LABS: CREATININE 4.4 MG/DL (0.6-1.3)
[2017-11-05 07:50] LABS: VANCOMYCIN, TROUGH 17.6 MCG/ML (10-20)
[2017-11-05 21:45] LABS: COMMENTS - BLOOD GASES A+C+; DEVICE VENT; FI02 60 %; INSPIRATION TIME 0.9 seconds; MECHANICAL RATE 10 resp/min; MODE ACVC+; PEEP 10 CM/H20; SITE R RADIAL; TIDAL VOLUME 500 ML; TOTAL RESP RATE 22 resp/min
[2017-11-05 21:46] LABS: BASE EXCESS 1 mEq/L (-3 to +3); BICARBONATE 27.1 mEq/L (22-26); CARBOXY HGB 0 % (0-5); METHEMOGLOBIN 0.2 % (0-1.5); PCO2 49 mm Hg (35-45); PO2 64 mm Hg (80-100); pH 7.35 (7.35-7.45)
[2017-11-05 22:22] LABS: HEMOGLOBIN 10.4 G/DL (12.5-16.6); MCH 31.6 PG (29.0-34.0); MCHC 31.5 G/DL (30.0-36.0); MCV 100.3 FL (86-99); NRBC (%) 0.2 /100 WBC (0-0); PLATELET COUNT 141 K/uL (156-360); RBC DIS.WIDTH-SD 62.2 % (39-53); RED BLOOD COUNT 3.29 M/uL (4.00-5.50); WHITE BLOOD COUNT 9.3 K/uL (4.1-10.2)
[2017-11-05 22:32] LABS: CHLORIDE 97 MEQ/L (99-109); CREATINE KINASE 10 IU/L (1-294); GFR ESTIMATE (CALCULATED) 19 mL/min/ (58.99-99999); GLUCOSE 254 mg/dL (70-99); POTASSIUM 4.2 MEQ/L (3.7-5.4); SODIUM 135 MEQ/L (136-147); UREA NITROGEN (BUN) 34 mg/dL (9-23)
[2017-11-05 22:34] LABS: CREATININE 3.4 MG/DL (0.6-1.3)
[2017-11-06] VITALS (24 sets, daily range): BP systolic 83–141; BP diastolic 37–85
[2017-11-06 05:25] LABS: BASOPHIL (%) 0.1 % (0-1); EOSINOPHIL (%) 0 % (0-5); HEMOGLOBIN 10.5 G/DL (12.5-16.6); IMMATURE GRANULOCYTE (%) 0.5 % (0.0-0.7); LYMPHOCYTE COUNT 0.4 K/uL (1.0-2.8); MCH 31.1 PG (29.0-34.0); MCHC 30.9 G/DL (30.0-36.0); MCV 100.6 FL (86-99); MONOCYTE (%) 3.5 % (3-12); MONOCYTE COUNT 0.4 K/uL (0-0.8); NEUTROPHIL (%) 91.9 % (45-76); NEUTROPHIL COUNT 9.9 K/uL (1.8-6.4); NRBC (%) 0.3 /100 WBC (0-0); PLATELET COUNT 149 K/uL (156-360); RBC DIS.WIDTH-CV 16.7 % (11.8-14.6); RBC DIS.WIDTH-SD 62.7 % (39-53); RED BLOOD COUNT 3.38 M/uL (4.00-5.50); WHITE BLOOD COUNT 10.7 K/uL (4.1-10.2)
[2017-11-06 06:04] LABS: CHLORIDE 96 MEQ/L (99-109); CREATININE 3.9 MG/DL (0.6-1.3); GFR ESTIMATE (CALCULATED) 16 mL/min/ (58.99-99999); GLUCOSE 262 mg/dL (70-99); POTASSIUM 4.1 MEQ/L (3.7-5.4); SODIUM 137 MEQ/L (136-147); UREA NITROGEN (BUN) 41 mg/dL (9-23)
[2017-11-06 06:09] LABS: CREATINE KINASE < 10 IU/L (1-294)
[2017-11-07] VITALS (24 sets, daily range): BP systolic 89–154; BP diastolic 34–86
[2017-11-07 05:40] LABS: HEMATOCRIT 32.7 % (38.0-50.0); MCH 30.9 PG (29.0-34.0); MCHC 30.6 G/DL (30.0-36.0); MCV 100.9 FL (86-99); NRBC (%) 0.3 /100 WBC (0-0); PLATELET COUNT 135 K/uL (156-360); RBC DIS.WIDTH-CV 16.7 % (11.8-14.6); RBC DIS.WIDTH-SD 62.9 % (39-53); RED BLOOD COUNT 3.24 M/uL (4.00-5.50)
[2017-11-07 05:43] LABS: INTER. NORMALIZED RATIO 2.6
[2017-11-07 06:03] LABS: CHLORIDE 97 MEQ/L (99-109); GFR ESTIMATE (CALCULATED) 27 mL/min/ (58.99-99999); GLUCOSE 234 mg/dL (70-99); SODIUM 138 MEQ/L (136-147); UREA NITROGEN (BUN) 27 mg/dL (9-23)
[2017-11-07 06:07] LABS: CREATININE 2.5 MG/DL (0.6-1.3)
[2017-11-08] VITALS (21 sets, daily range): BP systolic 96–129; BP diastolic 42–87
[2017-11-09 03:52] VITALS: BP 103/54
[2017-11-09 07:25] VITALS: BP 115/51
[2017-11-09 11:17] VITALS: BP 103/51
[2017-11-09 13:49] LABS: BASOPHIL (%) 0.1 % (0-1); EOSINOPHIL (%) 0 % (0-5); HEMATOCRIT 32.3 % (38.0-50.0); HEMOGLOBIN 10.1 G/DL (12.5-16.6); IMMATURE GRANULOCYTE (%) 1.1 % (0.0-0.7); LYMPHOCYTE (%) 2.4 % (15-42); LYMPHOCYTE COUNT 0.2 K/uL (1.0-2.8); MCH 31.1 PG (29.0-34.0); MCHC 31.3 G/DL (30.0-36.0); MCV 99.4 FL (86-99); MONOCYTE COUNT 0.2 K/uL (0-0.8); NEUTROPHIL (%) 94.4 % (45-76); NRBC (%) 0.2 /100 WBC (0-0); PLATELET COUNT 149 K/uL (156-360); RBC DIS.WIDTH-CV 16.8 % (11.8-14.6); RBC DIS.WIDTH-SD 61.6 % (39-53); RED BLOOD COUNT 3.25 M/uL (4.00-5.50); WHITE BLOOD COUNT 8.5 K/uL (4.1-10.2)
[2017-11-09 14:17] LABS: ALBUMIN 2.9 G/DL (3.2-4.8); CHLORIDE 91 MEQ/L (99-109); GLUCOSE 264 mg/dL (70-99); PHOSPHORUS 3.7 mg/dL (2.5-4.9); POTASSIUM 4.3 MEQ/L (3.7-5.4)
[2017-11-09 14:23] LABS: GFR ESTIMATE (CALCULATED) 15 mL/min/ (58.99-99999); SODIUM 131 MEQ/L (136-147); UREA NITROGEN (BUN) 59 mg/dL (9-23)
[2017-11-09 20:00] VITALS: BP 111/72
[2017-11-10] VITALS: BP 105/54
[2017-11-10 04:00] VITALS: BP 105/58
[2017-11-10 07:39] VITALS: BP 108/56
[2017-11-10 11:24] VITALS: BP 113/57
[2017-11-10 15:57] VITALS: BP 104/49
[2017-11-10 20:34] VITALS: BP 104/52
[2017-11-11 01:06] VITALS: BP 107/55
[2017-11-11 01:31] LABS: INTER. NORMALIZED RATIO 1.4
[2017-11-11 04:06] VITALS: BP 107/52
[2017-11-11 08:13] LABS: HEMATOCRIT 34.8 % (38.0-50.0); HEMOGLOBIN 10.7 G/DL (12.5-16.6); MCH 30.5 PG (29.0-34.0); MCHC 30.7 G/DL (30.0-36.0); MCV 99.1 FL (86-99); NRBC (%) 0.2 /100 WBC (0-0); PLATELET COUNT 172 K/uL (156-360); RBC DIS.WIDTH-CV 17.2 % (11.8-14.6); RBC DIS.WIDTH-SD 61.8 % (39-53); RED BLOOD COUNT 3.51 M/uL (4.00-5.50); WHITE BLOOD COUNT 10.7 K/uL (4.1-10.2)
[2017-11-11 08:38] LABS: ALBUMIN 2.9 G/DL (3.2-4.8); ALKALINE PHOSPHATASE 56 IU/L (3-129); ALT (GPT) 6 IU/L (3-49); AST (GOT) 9 IU/L (2-34); CHLORIDE 95 MEQ/L (99-109); CREATININE 3.5 MG/DL (0.6-1.3); GFR ESTIMATE (CALCULATED) 18 mL/min/ (58.99-99999); GLUCOSE 229 mg/dL (70-99); POTASSIUM 4.3 MEQ/L (3.7-5.4); TOTAL BILIRUBIN 0.6 MG/DL (0.0-1.0); TOTAL PROTEIN 5.2 G/DL (6.4-8.3); UREA NITROGEN (BUN) 54 mg/dL (9-23)
[2017-11-11 08:42] LABS: SODIUM 138 MEQ/L (136-147)
[2017-11-11 14:36] LABS: INTER. NORMALIZED RATIO 1.5
[2017-11-11 19:14] VITALS: BP 110/53
[2017-11-11 22:59] VITALS: BP 120/71
[2017-11-12 03:58] VITALS: BP 120/60
[2017-11-12 04:19] VITALS: BP 119/56
[2017-11-12 06:13] LABS: INTER. NORMALIZED RATIO 1.8
[2017-11-12 07:10] VITALS: BP 143/65
[2017-11-12 08:36] LABS: COMMENTS - BLOOD GASES A+C+; DEVICE NC; O2 FLOW 6 L/MIN; PCO2 44 mm Hg (35-45); PO2 60 mm Hg (80-100); SITE RR; TOTAL RESP RATE 24 resp/min; pH 7.52 (7.35-7.45)
[2017-11-12 08:37] LABS: BASE EXCESS 11.7 mEq/L (-3 to +3); BICARBONATE 35.9 mEq/L (22-26); CARBOXY HGB 0.3 % (0-5); METHEMOGLOBIN 0 % (0-1.5); O2 SATURATION (CALCULATED) 91.7 % (95-99)
[2017-11-12 08:59] LABS: HEMATOCRIT 35.2 % (38.0-50.0); HEMOGLOBIN 11.2 G/DL (12.5-16.6); MCH 31.6 PG (29.0-34.0); MCHC 31.8 G/DL (30.0-36.0); MCV 99.4 FL (86-99); PLATELET COUNT 172 K/uL (156-360); RBC DIS.WIDTH-CV 17.3 % (11.8-14.6); RBC DIS.WIDTH-SD 63.7 % (39-53); RED BLOOD COUNT 3.54 M/uL (4.00-5.50)
[2017-11-13 13:35] LABS: HEMATOCRIT 35.7 % (38.0-50.0); HEMOGLOBIN 11.1 G/DL (12.5-16.6); MCH 31.1 PG (29.0-34.0); MCHC 31.1 G/DL (30.0-36.0); NRBC (%) 0.2 /100 WBC (0-0); PLATELET COUNT 170 K/uL (156-360); RBC DIS.WIDTH-CV 17.5 % (11.8-14.6); RBC DIS.WIDTH-SD 64.8 % (39-53); RED BLOOD COUNT 3.57 M/uL (4.00-5.50); WHITE BLOOD COUNT 12.8 K/uL (4.1-10.2)
[2017-11-13 13:54] LABS: ALBUMIN 2.8 G/DL (3.2-4.8); CHLORIDE 93 MEQ/L (99-109); GFR ESTIMATE (CALCULATED) 15 mL/min/ (58.99-99999); PHOSPHORUS 4.7 mg/dL (2.5-4.9); POTASSIUM 4.1 MEQ/L (3.7-5.4); SODIUM 137 MEQ/L (136-147); UREA NITROGEN (BUN) 46 mg/dL (9-23)
[2017-11-13 13:59] LABS: CREATININE 4.1 MG/DL (0.6-1.3); GLUCOSE 88 mg/dL (70-99)
[2017-11-13 14:03] LABS: ABS NEUTROPHIL COUNT 10.6; ANISOCYTOSIS 2+; BAND NEUTROPHILS 0.9 % (0-8.0); EOSINOPHIL ABS CT 0.6; EOSINOPHILS 4.4 % (0-5.0); HYPOCHROMASIA 1+; LYMPHOCYTES 2.6 % (15.0-45.0); METAMYELOCYTES 2.6 %; MICROCYTOSIS 1+; MYELOCYTES 0.9 %; PLAT.SUFFICIENCY ADEQUATE; POIKILOCYTOSIS 2+; SEG.NEUTROPHILS 81.6 % (46.0-76.0); SPHEROCYTES 1+
[2017-11-13 15:52] LABS: INTER. NORMALIZED RATIO 4.1
[2017-11-13 15:55] VITALS: BP 100/48
[2017-11-14 00:45] VITALS: BP 118/60
[2017-11-14 06:05] LABS: HEMOGLOBIN 10.6 G/DL (12.5-16.6); MCH 30.8 PG (29.0-34.0); MCHC 30.3 G/DL (30.0-36.0); MCV 101.7 FL (86-99); PLATELET COUNT 159 K/uL (156-360); RBC DIS.WIDTH-CV 17.4 % (11.8-14.6); RBC DIS.WIDTH-SD 64.7 % (39-53); RED BLOOD COUNT 3.44 M/uL (4.00-5.50); WHITE BLOOD COUNT 10.8 K/uL (4.1-10.2)
[2017-11-14 06:14] LABS: INTER. NORMALIZED RATIO 4.8
[2017-11-14 06:58] LABS: CHLORIDE 97 MEQ/L (99-109); GFR ESTIMATE (CALCULATED) 22 mL/min/ (58.99-99999); GLUCOSE 75 mg/dL (70-99); MAGNESIUM 1.9 mg/dl (1.3-2.7); PHOSPHORUS 4.3 mg/dL (2.5-4.9); POTASSIUM 4.2 MEQ/L (3.7-5.4); SODIUM 140 MEQ/L (136-147); UREA NITROGEN (BUN) 29 mg/dL (9-23)
[2017-11-14 07:06] LABS: ABS NEUTROPHIL COUNT 8.7; ANISOCYTOSIS 1+; EOSINOPHIL ABS CT 0.6; EOSINOPHILS 5.4 % (0-5.0); HYPOCHROMASIA 1+; MACROCYTES 1+; MONOCYTES 2.7 % (0-9.0); MYELOCYTES 2.7 %; PLAT.SUFFICIENCY ADEQUATE; POLYCHROMASIA 1+; SEG.NEUTROPHILS 80.2 % (46.0-76.0)
[2017-11-14 07:15] VITALS: BP 110/51
[2017-11-14 15:20] VITALS: BP 150/55
[2017-11-15 00:32] VITALS: BP 102/62
[2017-11-15 06:10] LABS: INTER. NORMALIZED RATIO 3.9
[2017-11-15 07:25] VITALS: BP 99/75
[2017-11-15 15:25] VITALS: BP 133/51
[2017-11-16 01:03] VITALS: BP 121/57
[2017-11-16 08:14] LABS: BASOPHIL (%) 0.2 % (0-1); EOSINOPHIL (%) 1.5 % (0-5); EOSINOPHIL COUNT 0.1 K/uL (0-0.3); HEMATOCRIT 30.7 % (38.0-50.0); HEMOGLOBIN 9.9 G/DL (12.5-16.6); IMMATURE GRANULOCYTE (%) 3.5 % (0.0-0.7); LYMPHOCYTE (%) 11.9 % (15-42); LYMPHOCYTE COUNT 1.1 K/uL (1.0-2.8); MCH 31.5 PG (29.0-34.0); MCHC 32.2 G/DL (30.0-36.0); MCV 97.8 FL (86-99); MONOCYTE (%) 10.5 % (3-12); NEUTROPHIL (%) 72.4 % (45-76); NEUTROPHIL COUNT 6.5 K/uL (1.8-6.4); PLATELET COUNT 147 K/uL (156-360); RBC DIS.WIDTH-CV 17.3 % (11.8-14.6); RBC DIS.WIDTH-SD 61.7 % (39-53); RED BLOOD COUNT 3.14 M/uL (4.00-5.50); WHITE BLOOD COUNT 9.1 K/uL (4.1-10.2)
[2017-11-16 08:50] LABS: ALBUMIN 2.8 G/DL (3.2-4.8); CHLORIDE 94 MEQ/L (99-109); POTASSIUM 4.3 MEQ/L (3.7-5.4); SODIUM 136 MEQ/L (136-147)
[2017-11-16 08:53] LABS: INTER. NORMALIZED RATIO 2.2
[2017-11-16 09:03] LABS: CREATININE 4.8 MG/DL (0.6-1.3); GFR ESTIMATE (CALCULATED) 13 mL/min/ (58.99-99999); GLUCOSE 107 mg/dL (70-99); PHOSPHORUS 6.7 mg/dL (2.5-4.9); UREA NITROGEN (BUN) 52 mg/dL (9-23)
[2017-11-16 12:44] VITALS: BP 101/54
[2017-11-16] MEDS ORDERED: LEVAQUIN250 MG PO (15:10)
[2017-11-16] MEDS ORDERED: PREDNISONE10 MG PO (15:11)
[2017-11-16 16:48] VITALS: BP 117/48
== END 2017-11-16 17:37 | DRG 871 ==
LOC: EME 13:57 → 4WEST 18:46 → EDOF 18:46 → ENRESERV 18:48 → CANRESERV 19:08 → ENRESERV 19:08 → CANRESERV 19:17 → ENRESERV 19:17 → 4WEST 19:49 → 5EAST 11-08 19:19
PROVIDERS: Emergency Medicine; Family Medicine; Internal Medicine; Internal Medicine Critical Care Medicine; Internal Medicine Nephrology; Nurse Practitioner Acute Care; Specialist; Surgery
PROC: 5A1945Z Respiratory Ventilation, 24-96 Consecutive Hours (ICD-10-PCS; principal; 2017-11-01)
PROC: 0BH17EZ Insertion of Endotracheal Airway into Trachea, Via Natural or Artificial Opening (ICD-10-PCS; 2017-11-01)
PROC: 04HL33Z Insertion of Infusion Device into Left Femoral Artery, Percutaneous Approach (ICD-10-PCS; 2017-11-01)
PROC: 5A1D70Z Performance of Urinary Filtration, Intermittent, Less than 6 Hours Per Day (ICD-10-PCS; 2017-11-03)
DX: A41.9 Sepsis, unspecified organism (principal); N18.6 End stage renal disease; J96.21 Acute and chronic respiratory failure with hypoxia; R65.21 Severe sepsis with septic shock; G93.41 Metabolic encephalopathy; J18.9 Pneumonia, unspecified organism; I13.2 Hypertensive heart and chronic kidney disease with heart failure and with stage 5 chronic kidney disease, or end stage renal disease; N17.9 Acute kidney failure, unspecified; Z51.5 Encounter for palliative care; Z66 Do not resuscitate; I50.22 Chronic systolic (congestive) heart failure; J44.0 Chronic obstructive pulmonary disease with (acute) lower respiratory infection; J44.1 Chronic obstructive pulmonary disease with (acute) exacerbation; J98.11 Atelectasis; E87.2 Acidosis; E87.3 Alkalosis; N39.0 Urinary tract infection, site not specified; F33.9 Major depressive disorder, recurrent, unspecified; K57.32 Diverticulitis of large intestine without perforation or abscess without bleeding; L03.114 Cellulitis of left upper limb; F05 Delirium due to known physiological condition; E11.22 Type 2 diabetes mellitus with diabetic chronic kidney disease; D63.1 Anemia in chronic kidney disease; E66.01 Morbid (severe) obesity due to excess calories; I27.29 Other secondary pulmonary hypertension; B96.5 Pseudomonas (aeruginosa) (mallei) (pseudomallei) as the cause of diseases classified elsewhere; E03.9 Hypothyroidism, unspecified; E11.51 Type 2 diabetes mellitus with diabetic peripheral angiopathy without gangrene; E78.00 Pure hypercholesterolemia, unspecified; E78.5 Hyperlipidemia, unspecified; E87.5 Hyperkalemia; G47.33 Obstructive sleep apnea (adult) (pediatric); H91.13 Presbycusis, bilateral; I25.10 Atherosclerotic heart disease of native coronary artery without angina pectoris; I27.81 Cor pulmonale (chronic); I48.2 Chronic atrial fibrillation; K21.9 Gastro-esophageal reflux disease without esophagitis; M79.7 Fibromyalgia; N40.0 Benign prostatic hyperplasia without lower urinary tract symptoms; R29.810 Facial weakness; K86.89 Other specified diseases of pancreas; E66.9 Obesity, unspecified; Z99.3 Dependence on wheelchair; Z99.2 Dependence on renal dialysis; Z99.81 Dependence on supplemental oxygen; Z68.37 Body mass index [BMI] 37.0-37.9, adult; Z79.01 Long term (current) use of anticoagulants; Z87.891 Personal history of nicotine dependence; Z89.611 Acquired absence of right leg above knee; Z89.612 Acquired absence of left leg above knee; Z91.041 Radiographic dye allergy status; Z88.1 Allergy status to other antibiotic agents; Z89.022 Acquired absence of left finger(s); Z78.1 Physical restraint status; Z79.4 Long term (current) use of insulin
CPT/HCPCS: 36415; 36600; 70450; 71045; 71250; 74176; 80048; 80048 91; 80053; 80069; 80200; 80202; 81003; 82140; 82150; 82330; 82533 91; 82550; 82550 91; 82948; 83605; 83690; 83735; 84100; 84145 90; 84443; 84478; 84484; 85025; 85027; 85610; 85730; 87040; 87070; 87077; 87086; 87186; 87205; 87641; 87801; 92526 GN; 92610 GN; 93005; 94002; 94003; 94640; 94760; 94799; 99281; 99285; A6214; C1751; G0480; J0295; J1265; J1644; J1815; J1956; J2060; J2250; J2543; J2930; J3010; J3260; J3370; J7030; J7040; J7050; J7070; J7512; P9047; S0028